=== PATIENT | female | born 1940 | race Caucasian/White ===

== ENCOUNTER 2021-03-30 02:21 | Emergency (ER) | payer MEDICARE ==
--- NOTE | 2021-03-30 02:44 | ERPHSYRPT ---
- History of Present Illness Source: patient, EMS Exam Limitations: no limitations Patient Subjective Stated Complaint: pt states "My nose has bleeding all day." Triage Nursing Assessment: pt came into the er via ambulance; pt axo x3; c/o epistasis; pt denies pain to nose; no active bleeding to ephraim nares; pt states that she is on blood thinners; pt states that bleeding was in rt nare; vitals wnl Physician History: Epistaxis which has resolved. Pt is on Eliquis Timing/Duration: intermittent Severity: mild ENT Location: nose Prearrival Treatment: no prearrival treatment Modifying Factors: Improves With: nothing Associated Symptoms: epistaxis, No ear pain (R), No ear pain (L), No cough, No fever, No chills, No change in hearing, No dizziness, No drooling, No ear drainage, No facial pain/swelling, No headache, No hearing loss, No jaw pain, No malaise, No motion sickness, No nasal congestion/drainage, No nasal foreign body, No neck pain, No poor fluid intake, No poor solids intake, No ringing of ears, No swollen glands, No sinus infection, No sore throat, No tooth pain, No difficulty swallowing, No voice change Allergies/Adverse Reactions: adhesive tape Allergy (Verified 03/30/21 02:26) atorvastatin [From Lipitor] Allergy (Verified 03/30/21 02:26) bacitracin Allergy (Verified 03/30/21 02:26) codeine Allergy (Verified 03/30/21 02:26) NSAIDS (Non-Steroidal Anti-Inflamma Allergy (Verified 03/30/21 02:26) Sulfa (Sulfonamide Antibiotics) Allergy (Verified 03/30/21 02:26) Hx Tetanus, Diphtheria Vaccination/Date Given: Yes Hx Influenza Vaccination/Date Given: Yes Hx Pneumococcal Vaccination/Date Given: Yes Travel Risk - International Travel Have you traveled outside of the country in past 3 weeks: No - Coronavirus Screening Are you exhibiting any of the following symptoms?: No Close contact with a COVID-19 positive Pt in past 14-21 Days: No - Vaccine Status Have you recieved a Covid-19 vaccination: Yes Machine Fitter: Moderna - Vaccination Dates Date of 2cond Vaccination (if applicable): unknown - Review of Systems Constitutional: No Symptoms Eyes: No Symptoms Ears, Nose, & Throat: No Symptoms, Epistaxis Respiratory: No Symptoms Cardiac: No Symptoms Abdominal/Gastrointestinal: No Symptoms Genitourinary Symptoms: No Symptoms Musculoskeletal: No Symptoms Skin: No Symptoms Neurological: No Symptoms Psychological: No Symptoms Endocrine: No Symptoms Hematologic/Lymphatic: No Symptoms Immunological/Allergic: No Symptoms - Past Medical History Neurological History: Peripheral Neuropathy Cardiac History: Arrhythmia Respiratory History: Asthma Musculoskeletal History: Arthritis, Degenerative Disk Disease, Osteoarthritis - Past Surgical History Past Surgical History: Yes Gastrointestinal: Hernia Repair Musculoskeletal: Orthopedic Surgery Other Surgical History: rt knee - Social History Smoking Status: Never smoker Exposure to second hand smoke: No Drug Use: none Patient Lives Alone: No Significant Family History: no pertinent family hx - Female History Hx Now: No - Nursing Vital Signs Nursing Vital Signs: Initial Vital Signs Temperature 97.9 F 03/30/21 02:26 Pulse Rate 90 03/30/21 02:26 Respiratory Rate 18 03/30/21 02:26 Blood Pressure 119/63 03/30/21 02:26 O2 Sat by Pulse Oximetry 96 03/30/21 02:26 Pain Scale Pain Intensity 0 - Physical Exam General Appearance: no apparent distress Eye Exam: bilateral eye: normal inspection, PERRL, EOMI Ear Exam: bilateral ear: auricle normal, canal normal, TM normal Nasal Exam: normal inspection, No active bleeding, No dried blood Throat Exam: normal, pharynx normal Neck Exam: normal inspection, non-tender, supple, full range of motion, trachea midline Cardiovascular/Respiratory Exam: normal breath sounds, regular rate/rhythm, heart sounds normal Abdominal Exam: non-tender, soft Neurologic Exam: alert, oriented x 3, cooperative, career technical education teacher II-XII nml as tested, normal mood/affect, sensation nml Skin Exam: normal color, warm, dry, No rash SpO2 Interpretation: normal SpO2: 96 O2 Delivery: Room Air - Course Nursing assessment & vital signs reviewed: Yes - Progress Progress Note: 03/30/21 02:41 No evidence of epistaxis in ER or obvious area of previous epistaxis. 03/30/21 03:27 Pt started to bleed from R nostril before discharge, after no bleeding during the majority of stay. Epistaxis catheter placed wo comps. Counseled pt/family regarding: need for follow-up - Departure Departure Disposition: Extended Care Facility Clinical Impression: Epistaxis Condition: Stable Critical Care Time: No Referrals: SERJIO CONRAD [Primary Care Provider] - Instructions: Nosebleeds (DC) Additional Instructions: Hold Eliquis for 48 hours. Have intermediate physician remove catheter on Thursday
[2021-03-30 03:36] VITALS: BP 112/59; PULSE 79
[2021-03-30 04:44] VITALS: O2SAT 96
== END 2021-03-30 03:37 ==
LOC: ED 02:21
DX: R04.0 Epistaxis (principal); Z79.01 Long term (current) use of anticoagulants; G62.9 Polyneuropathy, unspecified
CPT/HCPCS: 99283

== ENCOUNTER 2021-04-09 11:48 | Observation (INO) | payer MEDICARE ==
[2021-04-09] MEDS ORDERED: Sodium Chloride 0.9% 1000 ML 1,000 ML IV STA (12:02)
--- NOTE | 2021-04-09 12:06 | ERPHSYRPT ---
- History of Present Illness Time Seen by Provider: 04/09/21 12:00 Source: patient Patient Subjective Stated Complaint: Pt has had a nose bleed since around 0230 and it has not stopped, pt had a nose bleed last weekend and had to have a rhino rocket Triage Nursing Assessment: Pt brought to the ER by EMS, hypotensive, reports pain as 10/10 but she is talking up a storm about everything, pulses normal, pt states that the blood is dripping but none seen by this nurse, doesn't appear to be in any distress Physician History: Patient is a 80-year-old female presents to our ED for evaluation of epistaxis. Patient had a nosebleed last weekend. Patient is on Eliquis. Patient followed up in an ER. A Rhino Rocket was inserted. Patient's Eliquis was temporarily stopped. Rhino Rocket was removed. Patient resumed her Eliquis. Now her nosebleed has returned. Patient has baseline anemia. Patient requesting lab draw to make sure that she is not profoundly anemic. Patient states her nosebleed started at 2:30 AM and has been bleeding since. Patient arrived via EMS. No active bleeding at this time. Patient in good spirits. Patient is well-appearing nontoxic. Patient voices no other complaints or concerns at this time. Timing/Duration: today Severity: mild Associated Symptoms: denies symptoms Allergies/Adverse Reactions: adhesive tape Allergy (Verified 04/09/21 12:00) atorvastatin [From Lipitor] Allergy (Verified 04/09/21 12:00) bacitracin Allergy (Verified 04/09/21 12:00) codeine Allergy (Verified 04/09/21 12:00) NSAIDS (Non-Steroidal Anti-Inflamma Allergy (Verified 04/09/21 12:00) Sulfa (Sulfonamide Antibiotics) Allergy (Verified 04/09/21 12:00) Home Medications: Albuterol Sulfate [Albuterol Sulfate Hfa] 2 inh PO Q6H 04/09/21 [History] Allopurinol 300 mg [Zyloprim 300 mg] 600 mg PO DAILY 04/09/21 [History] Apixaban [Eliquis] 2.5 mg PO BID 04/09/21 [History] Ascorbic Acid [Vitamin C] 1,000 mg PO DAILY 04/09/21 [History] Aspirin EC 81 mg [Ecotrin 81 mg] 81 mg PO DAILY 04/09/21 [History] Budesonide 0.5 mg/2 ml [Pulmicort 0.5 mg/2 ml Respules] 1 vial PO UD 04/09/21 [History] Buspirone HCl [Buspar] 10 mg PO BID 04/09/21 [History] Cholecalciferol (Vitamin D3) [Vitamin D3] 125 mcg PO DAILY 04/09/21 [History] Cyanocobalamin (Vitamin B-12) [Vitamin B12] 2,500 mcg PO DAILY 04/09/21 [History] Dapagliflozin Propanediol [Farxiga] 10 mg PO QAM 04/09/21 [History] Docusate Sodium 100 mg [Colace 100 MG] 100 mg PO TID 04/09/21 [History] Duloxetine HCl [Cymbalta] 60 mg PO DAILY 04/09/21 [History] Ferrous Gluconate 324 mg PO TID 04/09/21 [History] Fluconazole 150 mg PO WEEKLY 04/09/21 [History] Fluticasone Propionate [Flovent 110 Mcg MDI] 1 spray IN BID 04/09/21 [History] Fosfomycin Tromethamine 3 gm PO WEEKLY 04/09/21 [History] Gabapentin [Neurontin] 600 mg PO BID 04/09/21 [History] Hydrocodone/Acetaminophen [Hydrocodone-Acetamin 5-325 mg] 1 tab PO Q4HPRN PRN MDD 6 04/09/21 [History] Icosapent Ethyl [Vascepa] 2 gm PO BID 04/09/21 [History] Insulin Glargine,Hum.rec.anlog [Basaglar Kwikpen U-100] 36 unit SQ QAM 04/09/21 [History] Insulin Lispro [Humalog] 10 unit SQ TIDAC 04/09/21 [History] Isosorbide Mononitrate [Isosorbide Mononitrate ER] 30 mg PO DAILY 04/09/21 [History] Levothyroxine Sodium 100 Mcg [Synthroid 100 Mcg] 100 mcg PO DAILY 04/09/21 [History] Lisinopril 5 mg [Zestril 5 MG] 5 mg PO DAILY 04/09/21 [History] Magnesium Oxide 400 mg [Mag-Ox 400] 400 mg PO TID 04/09/21 [History] Metoprolol Tartrate 25 mg [Lopressor 25MG Tab] 25 mg PO BID 04/09/21 [History] Montelukast Sodium 10 mg [Singulair 10 MG] 10 mg PO DAILY 04/09/21 [History] Omeprazole Magnesium 20 mg PO DAILY 04/09/21 [History] Potassium Chloride [Klor-Con] 20 meq PO BID 04/09/21 [History] Rosuvastatin Calcium 10 mg PO HS 04/09/21 [History] Semaglutide [Ozempic] 1 mg SQ WEEKLY 04/09/21 [History] Torsemide 100 mg PO BID 04/09/21 [History] Hx Tetanus, Diphtheria Vaccination/Date Given: Yes Hx Influenza Vaccination/Date Given: Yes Hx Pneumococcal Vaccination/Date Given: Yes Travel Risk - International Travel Have you traveled outside of the country in past 3 weeks: No - Coronavirus Screening Close contact with a COVID-19 positive Pt in past 14-21 Days: No - Vaccine Status Have you recieved a Covid-19 vaccination: Yes Paediatric Thoracic Physician: Moderna - Vaccination Dates Date of 2cond Vaccination (if applicable): unknown - Review of Systems Constitutional: No Symptoms, No Fever, No Chills Eyes: No Symptoms Ears, Nose, & Throat: No Symptoms Respiratory: No Symptoms, No Cough, No Dyspnea Cardiac: No Symptoms, No Chest Pain, No Edema, No Syncope Abdominal/Gastrointestinal: No Symptoms, No Abdominal Pain, No Nausea, No Vomiting, No Diarrhea Genitourinary Symptoms: No Symptoms, No Dysuria Musculoskeletal: No Symptoms, No Back Pain, No Neck Pain Skin: No Symptoms, No Rash Neurological: No Symptoms, No Dizziness, No Focal Weakness, No Sensory Changes Psychological: No Symptoms Endocrine: No Symptoms Hematologic/Lymphatic: No Symptoms Immunological/Allergic: No Symptoms All Other Systems: Reviewed and Negative - Past Medical History Pertinent Past Medical History: Yes Neurological History: Peripheral Neuropathy Cardiac History: Arrhythmia Respiratory History: Asthma Musculoskeletal History: Arthritis, Degenerative Disk Disease, Osteoarthritis - Past Surgical History Past Surgical History: Yes Gastrointestinal: Hernia Repair Musculoskeletal: Orthopedic Surgery Other Surgical History: rt knee - Social History Smoking Status: Never smoker Exposure to second hand smoke: No Drug Use: none Patient Lives Alone: No Significant Family History: no pertinent family hx - Female History Hx Now: No - Nursing Vital Signs Nursing Vital Signs: Initial Vital Signs Temperature 96.7 F 04/09/21 11:51 Pulse Rate 82 04/09/21 11:51 Blood Pressure 86/48 04/09/21 11:51 O2 Sat by Pulse Oximetry 92 L 04/09/21 11:51 Pain Scale Pain Intensity 6 - Physical Exam General Appearance: no apparent distress, alert Eye Exam: PERRL/EOMI, eyes nml inspection Ears, Nose, Throat Exam: normal ENT inspection, TMs normal, pharynx normal, moist mucous membranes, other (Epistaxis of the right nostril. There is active using a blood at time of exam.) Neck Exam: normal inspection, non-tender, supple, full range of motion Respiratory Exam: normal breath sounds, lungs clear, No respiratory distress Cardiovascular Exam: regular rate/rhythm, normal heart sounds, normal peripheral pulses Gastrointestinal/Abdomen Exam: soft, normal bowel sounds, No tenderness, No mass Back Exam: normal inspection, normal range of motion, No CVA tenderness, No vertebral tenderness Extremity Exam: normal inspection, normal range of motion, pelvis stable Neurologic Exam: alert, oriented x 3, cooperative, normal mood/affect, nml cerebellar function, nml station & gait, sensation nml, No motor deficits Skin Exam: normal color, warm, dry, No rash Lymphatic Exam: No adenopathy SpO2 Interpretation: normal SpO2: 92 O2 Delivery: Room Air - Course Nursing assessment & vital signs reviewed: Yes Ordered Tests: Active Orders 24 hr Category Date Time Status IV Insertion STAT Care 04/09/21 12:02 Active CBC W DIFF Stat Lab 04/09/21 12:09 Completed CMP Stat Lab 04/09/21 12:09 Completed CULTURE,URINE Stat Lab 04/09/21 Ordered Lactic Acid Stat Lab 04/09/21 13:48 Completed Manual Differential NC Stat Lab 04/09/21 12:09 Completed UA W/RFX UR CULTURE Stat Lab 04/09/21 13:12 Ordered Transfer Order Routine Transfer 04/09/21 Ordered Medication Summary Discontinued Medications Generic Name Dose Route Start Last Admin Trade Name Freq PRN Reason Stop Dose Admin Sodium Chloride 1,000 mls @ 999 mls/hr 04/09/21 12:02 04/09/21 13:20 Sodium Chloride 0.9% 1000 Ml IV 04/09/21 13:02 Infused .Q1H1M STA Infusion Sodium Chloride Confirm 04/09/21 12:15 Sodium Chloride 0.9% 1000 Ml Administered 04/09/21 12:16 Dose 1,000 mls @ ud .ROUTE .STK-MED ONE Tramadol HCl 50 mg 04/09/21 14:37 04/09/21 14:41 Ultram 50 Mg PO 04/09/21 14:38 50 mg STAT ONE Administration Tramadol HCl Confirm 04/09/21 14:41 Ultram 50 Mg Administered 04/09/21 14:42 Dose 50 mg .ROUTE .STK-MED ONE Lab/Rad Data: Laboratory Result Diagrams 04/09/21 12:09 04/09/21 12:09 Laboratory Results 04/09/21 04/09/21 04/09/21 Range/Units 14:24 13:48 12:09 WBC (4.0-10.5) K/mm3 RBC (4.1-5.4) M/mm3 Hgb (12.0-16.0) gm/dl Hct (35-47) % MCV (78-100) fl MCH (26-32) pg MCHC (32-36) g/dl RDW (11.5-14.0) % Plt Count (150-450) K/mm3 MPV (7.5-11.0) fl Sodium 127 L (137-145) mmol/L Potassium 5.2 H (3.5-5.1) mmol/L Chloride 81 L (98-107) mmol/L Carbon Dioxide 31 H (22-30) mmol/L Anion Gap 20.4 H (5-15) MEQ/L BUN 123 H (7-17) mg/dL Creatinine 2.44 H (0.52-1.04) mg/dL Estimated GFR 20.2 ML/MIN Glucose 247 H (74-106) mg/dL Lactic Acid 2.1 H (0.4-2.0) Calcium 9.7 (8.4-10.2) mg/dL Total Bilirubin 0.20 (0.2-1.3) mg/dL AST 27 (14-36) U/L ALT 29 (0-35) U/L Alkaline Phosphatase 93 (38-126) U/L Serum Total Protein 7.4 (6.3-8.2) g/dL Albumin 4.2 (3.5-5.0) g/dL SARS-CoV-2 (PCR) NEGATIVE (NEGATIVE) 04/09/21 Range/Units 12:09 WBC 15.1 H (4.0-10.5) K/mm3 RBC 3.57 L (4.1-5.4) M/mm3 Hgb 9.6 L (12.0-16.0) gm/dl Hct 32.1 L (35-47) % MCV 89.9 (78-100) fl MCH 26.9 (26-32) pg MCHC 29.9 L (32-36) g/dl RDW 19.2 H (11.5-14.0) % Plt Count 388 (150-450) K/mm3 MPV 8.0 (7.5-11.0) fl Sodium (137-145) mmol/L Potassium (3.5-5.1) mmol/L Chloride (98-107) mmol/L Carbon Dioxide (22-30) mmol/L Anion Gap (5-15) MEQ/L BUN (7-17) mg/dL Creatinine (0.52-1.04) mg/dL Estimated GFR ML/MIN Glucose (74-106) mg/dL Lactic Acid (0.4-2.0) Calcium (8.4-10.2) mg/dL Total Bilirubin (0.2-1.3) mg/dL AST (14-36) U/L ALT (0-35) U/L Alkaline Phosphatase (38-126) U/L Serum Total Protein (6.3-8.2) g/dL Albumin (3.5-5.0) g/dL SARS-CoV-2 (PCR) (NEGATIVE) - Progress Progress: improved Progress Note: Patient reassessed. She feels well. Rhino Rocket inserted. Rhino Rocket size is 5.5 cm. Patient tolerated procedure well. Vital stable. Patient has acute renal injury. IV fluids initiated. Patient will need a repeat chemistry to reassess potassium after IV fluid administration. Patient will also require antibiotics as she has a Rhino Rocket which predisposes to toxic shock syndrome. Plan of care discussed with patient. She agrees to admission [facility] for further evaluation and treatment. 04/09/21 15:43 Discussed with : Waylon Will see patient in: hospital (observation) Counseled pt/family regarding: lab results, diagnosis - Departure Departure Disposition: Home Clinical Impression: Epistaxis, Leukocytosis, Normocytic anemia, Hyponatremia, High anion gap metabolic acidosis, Acute renal injury, Hyperglycemia Condition: Stable Critical Care Time: No Referrals: SERJIO CONRAD [Primary Care Provider] -
[2021-04-09] MEDS ORDERED: Sodium Chloride 0.9% 1000 ML 1,000 ML ONE (12:15)
[2021-04-09 12:19] LABS: Hematocrit 32.1 % (35-47); Hemoglobin 9.6 gm/dl (12.0-16.0); Mean Cell Volume 89.9 fl (78-100); Mean Corpuscular Hemoglobin 26.9 pg (26-32); Mean Corpuscular Hgb Concent. 29.9 g/dl (32-36); Platelet Count 388 K/mm3 (150-450); Red Blood Count 3.57 M/mm3 (4.1-5.4); Red Cell Distribution Width 19.2 % (11.5-14.0); White Blood Count 15.1 K/mm3 (4.0-10.5)
[2021-04-09 12:33] LABS: ALBUMIN 4.2 g/dL (3.5-5.0); ANION GAP 20.4 MEQ/L (5-15); BILIRUBIN,TOTAL 0.2 mg/dL (0.2-1.3); Calcium 9.7 mg/dL (8.4-10.2); Creatinine 1 2.44 mg/dL (0.52-1.04); EST GLOMERULAR FILTRATION RATE 20.2 ML/MIN; Potassium 5.2 mmol/L (3.5-5.1); Total Protein 7.4 g/dL (6.3-8.2)
[2021-04-09] MEDS ORDERED: ULTRAM 50 MG PO ONE (14:37)
[2021-04-09] MEDS ORDERED: ULTRAM 50 MG ONE (14:41)
[2021-04-09 15:55] LABS: BAND 4 % (0.0-2.0); Eosinophil 1 % (0.00-3.0); Lymphocytes 8 % (24-44); Monocyte 6 % (0.0-12.0); Neutrophils 81 % (36.0-66.0); Total Cells Counted 100
[2021-04-09 15:56] LABS: Hypochromia 1+; Platelet Estimate NORMAL (NORMAL)
[2021-04-09 16:09] LABS: Appearance CLEAR (CLEAR); Bacteria RARE /HPF (NEGATIVE); Bilirubin NEGATIVE (NEGATIVE); Blood SMALL Ery/ul (0-5); Glucose 50 mg/dL (NEGATIVE); Hyaline Casts 0-2 /LPF (0-2); Ketones NEGATIVE (NEGATIVE); Leukocyte Esterase LARGE (NEGATIVE); Mucus SLIGHT /HPF (NEGATIVE); Nitrite NEGATIVE (NEGATIVE); Protein,Urine Dip NEGATIVE (Negative); Specific Gravity 1.009 (1.005-1.025); Urobilinogen NEGATIVE mg/dL (0-1); WBC 26-50 /HPF (0-5)
[2021-04-09 16:12] LABS: Budding Yeast Rare /HPF (NEGATIVE)
[2021-04-09] MEDS ORDERED: VENTOLIN COMMON CANISTER IH PRN (16:40)
[2021-04-09] MEDS ORDERED: Ventolin Hfa MDI IH SCH (16:45)
[2021-04-09] MEDS ORDERED: PULMICORT 0.5 MG/2 ML RESPULES IH SCH (16:45)
[2021-04-09] MEDS ORDERED: MEDICATION INTERVENTION MC SCH ×2 (17:00→17:15)
[2021-04-09] MEDS: Sodium Chloride 0.9% 1000 ML 1,000 ML IV SCH (17:22)
[2021-04-09] MEDS: NORCO 5/325 MG PO PRN ×2 (17:32→23:39)
[2021-04-09] MEDS: PULMICORT 0.5 MG/2 ML RESPULES IH SCH (19:22)
[2021-04-09] MEDS: KEFLEX 500 MG PO SCH (21:32)
[2021-04-09] MEDS: FEOSOL 325 MG PO SCH (21:32)
[2021-04-09] MEDS: Colace 100 MG PO SCH (21:32)
[2021-04-09] MEDS: Lopressor 25MG Tab PO SCH (21:32)
[2021-04-09] MEDS: MAG-OX 400 PO SCH (21:33)
[2021-04-09] MEDS: ULTRAM 50 MG PO PRN (21:34)
[2021-04-09] MEDS ORDERED: NON-FORMULARY ITEM (Rosuvastatin Calcium [Rosuvastatin Calcium] 10 MG) PO SCH (22:00)
[2021-04-09] MEDS ORDERED: ZOCOR 20MG PO SCH (22:00)
[2021-04-09] MEDS ORDERED: Flovent 110 Mcg MDI IH SCH (22:00)
[2021-04-09] MEDS ORDERED: NON-FORMULARY ITEM (Ferrous Gluconate [Ferrous Gluconate] 324 MG) PO SCH (22:00)
[2021-04-09] MEDS ORDERED: ICOSAPENT ETHYL 2 GM PO SCH (22:00)
[2021-04-10] MEDS: Sodium Chloride 0.9% 1000 ML 1,000 ML IV SCH (01:41)
[2021-04-10] MEDS: ULTRAM 50 MG PO PRN (03:59)
[2021-04-10 05:30] LABS: Hematocrit 28.8 % (35-47); Hemoglobin 8.5 gm/dl (12.0-16.0); Mean Cell Volume 90.9 fl (78-100); Mean Corpuscular Hemoglobin 26.8 pg (26-32); Mean Corpuscular Hgb Concent. 29.5 g/dl (32-36); Mean Platelet Volume 8.4 fl (7.5-11.0); Platelet Count 361 K/mm3 (150-450); Red Blood Count 3.17 M/mm3 (4.1-5.4); Red Cell Distribution Width 19.1 % (11.5-14.0); White Blood Count 17.1 K/mm3 (4.0-10.5)
[2021-04-10 06:04] LABS: ALBUMIN 3.6 g/dL (3.5-5.0); ALKALINE PHOSPHATASE 79 U/L (38-126); ANION GAP 18.7 MEQ/L (5-15); BILIRUBIN,TOTAL < 0.10 mg/dL (0.2-1.3); BLOOD UREA NITROGEN 110 mg/dL (7-17); CHLORIDE 89 mmol/L (98-107); Carbon Dioxide 28 mmol/L (22-30); Creatinine 1 1.97 mg/dL (0.52-1.04); EST GLOMERULAR FILTRATION RATE 25.8 ML/MIN; Glucose 195 mg/dL (74-106); Potassium 5.6 mmol/L (3.5-5.1); SGOT/AST 23 U/L (14-36); SGPT/ALT 23 U/L (0-35); SODIUM 131 mmol/L (137-145); Total Protein 6.5 g/dL (6.3-8.2)
[2021-04-10] MEDS: PULMICORT 0.5 MG/2 ML RESPULES IH SCH (07:02)
[2021-04-10 07:07] VITALS: O2SAT 97
[2021-04-10] MEDS ORDERED: HUMALOG SQ SCH (07:30)
[2021-04-10] MEDS ORDERED: NON-FORMULARY ITEM (Insulin Lispro 10 UNIT) SQ SCH (07:30)
[2021-04-10] MEDS: Colace 100 MG PO SCH (07:51)
[2021-04-10] MEDS: FEOSOL 325 MG PO SCH (07:52)
[2021-04-10] MEDS: MAG-OX 400 PO SCH (07:53)
[2021-04-10] MEDS: Lopressor 25MG Tab PO SCH (07:53)
[2021-04-10] MEDS: KEFLEX 500 MG PO SCH (07:53)
--- NOTE | 2021-04-10 08:01 | PCM.SSS ---
History of Present Illness - Chief Complaint Chief Complaint: epistaxis History of Present Illness: is a 80 year old female who presented to the ER with epistaxis of several hours duration, she had a significant nosebleed episode with rhinorocket and ENT consult by Dr Hope, it was removed and out for about a week then recurred, her eliquis had been restarted. she has no complaints today, no bleeding overnight since rhino rocket was inserted, she feels well and wishes to return to her room. - Review of Systems Constitutional: No Fever, No Chills Ears, Nose, & Throat: Epistaxis (resolved s/p packing) Respiratory: No Cough, No Short Of Breath Cardiac: No Chest Pain, No Edema, No Syncope Abdominal/Gastrointestinal: No Symptoms Skin: No Rash All Other Systems: Reviewed and Negative Medications & Allergies Home Medications: Home Medication List Albuterol Sulfate [Albuterol Sulfate Hfa] 2 inh PO Q6H 04/09/21 [History Confirmed 04/09/21] Allopurinol 300 mg [Zyloprim 300 mg] 600 mg PO DAILY 04/09/21 [History Confirmed 04/09/21] Ascorbic Acid [Vitamin C] 1,000 mg PO DAILY 04/09/21 [History Confirmed 04/09/21] Budesonide 0.5 mg/2 ml [Pulmicort 0.5 mg/2 ml Respules] 1 vial PO UD 04/09/21 [History Confirmed 04/09/21] Buspirone HCl [Buspar] 10 mg PO BID 04/09/21 [History Confirmed 04/09/21] Cholecalciferol (Vitamin D3) [Vitamin D3] 125 mcg PO DAILY 04/09/21 [History Confirmed 04/09/21] Cyanocobalamin (Vitamin B-12) [Vitamin B12] 2,500 mcg PO DAILY 04/09/21 [History Confirmed 04/09/21] Dapagliflozin Propanediol [Farxiga] 10 mg PO QAM 04/09/21 [History Confirmed 04/09/21] Docusate Sodium 100 mg [Colace 100 MG] 100 mg PO TID 04/09/21 [History Confirmed 04/09/21] Duloxetine HCl [Cymbalta] 60 mg PO DAILY 04/09/21 [History Confirmed 04/09/21] Ferrous Gluconate 324 mg PO TID 04/09/21 [History Confirmed 04/09/21] Fluconazole 150 mg PO WEEKLY 04/09/21 [History Confirmed 04/09/21] Fluticasone Propionate [Flovent 110 Mcg MDI] 1 spray IN BID 04/09/21 [History Confirmed 04/09/21] Fosfomycin Tromethamine 3 gm PO WEEKLY 04/09/21 [History Confirmed 04/09/21] Gabapentin [Neurontin] 600 mg PO BID 04/09/21 [History Confirmed 04/09/21] Hydrocodone/Acetaminophen [Hydrocodone-Acetamin 5-325 mg] 1 tab PO Q4HPRN PRN MDD 6 04/09/21 [History Confirmed 04/09/21] Icosapent Ethyl [Vascepa] 2 gm PO BID 04/09/21 [History Confirmed 04/09/21] Insulin Glargine,Hum.rec.anlog [Neliagldevon Qureshi U-100] 36 unit SQ QAM 04/09/21 [History Confirmed 04/09/21] Insulin Lispro [Humalog] 10 unit SQ TIDAC 04/09/21 [History Confirmed 04/09/21] Isosorbide Mononitrate [Isosorbide Mononitrate ER] 30 mg PO DAILY 04/09/21 [History Confirmed 04/09/21] Levothyroxine Sodium 100 Mcg [Synthroid 100 Mcg] 100 mcg PO DAILY 04/09/21 [History Confirmed 04/09/21] Lisinopril 5 mg [Zestril 5 MG] 5 mg PO DAILY 04/09/21 [History Confirmed 04/09/21] Magnesium Oxide 400 mg [Mag-Ox 400] 400 mg PO TID 04/09/21 [History Confirmed 04/09/21] Metoprolol Tartrate 25 mg [Lopressor 25MG Tab] 25 mg PO BID 04/09/21 [History Confirmed 04/09/21] Montelukast Sodium 10 mg [Singulair 10 MG] 10 mg PO DAILY 04/09/21 [History Confirmed 04/09/21] Omeprazole Magnesium 20 mg PO DAILY 04/09/21 [History Confirmed 04/09/21] Potassium Chloride [Klor-Con] 20 meq PO BID 04/09/21 [History Confirmed 04/09/21] Rosuvastatin Calcium 10 mg PO HS 04/09/21 [History Confirmed 04/09/21] Semaglutide [Ozempic] 1 mg SQ WEEKLY 04/09/21 [History Confirmed 04/09/21] Torsemide 100 mg PO BID 04/09/21 [History Confirmed 04/09/21] Cephalexin Mh 500 mg [Keflex 500 mg] 500 mg PO TID capsule 04/10/21 [Rx] Allergies/Adverse Reactions: Allergies Allergy/AdvReac Type Severity Reaction Status Date / Time adhesive tape Allergy Verified 04/09/21 12:00 atorvastatin [From Lipitor] Allergy Verified 04/09/21 12:00 bacitracin Allergy Verified 04/09/21 12:00 codeine Allergy Verified 04/09/21 12:00 NSAIDS (Non-Steroidal Allergy Verified 04/09/21 12:00 Anti-Inflamma Sulfa (Sulfonamide Allergy Verified 04/09/21 12:00 Antibiotics) - Past Medical History Past Medical History: Yes Neurological History: Peripheral Neuropathy Cardiac History: Arrhythmia Respiratory History: Asthma Musculoskelatal History: Arthritis, Degenerative Disk Disease, Osteoarthritis - Female History Are you now?: No - Past Surgical History Past Surgical History: Yes GI Surgical History: Hernia Repair Musculskeletal Surgical Hx: Orthopedic Surgery Other Surgical History: rt knee - Social History Smoking Status: Never smoker Exposure to second hand smoke: No Alcohol: None Drug Use: none Significant Family History: no pertinent family hx - Physical Exam Vital Signs: Vital Signs - 24 hr Temp Pulse Resp BP Pulse Ox 04/10/21 07:05 87 18 97 04/10/21 04:00 97.6 F 87 18 147/65 96 04/10/21 00:00 98 F 86 19 112/55 100 04/09/21 19:34 97.9 F 87 18 110/56 95 04/09/21 19:22 92 H 20 95 04/09/21 16:30 98 04/09/21 16:09 97.0 F 82 20 106/67 94 L 04/09/21 16:08 97.0 F 82 20 106/67 99 04/09/21 15:49 92 L 04/09/21 15:00 84 18 95 04/09/21 13:15 63 115/53 92 L 04/09/21 11:51 96.7 F 82 86/48 92 L General Appearance: no apparent distress, alert Neurologic Exam: alert, oriented x 3 Ears, Nose, Throat Exam: other (rhinorocket in right nares, no bleeding in posterior oropharynx, no trauma) Respiratory Exam: normal breath sounds, lungs clear, No respiratory distress Cardiovascular Exam: regular rate/rhythm, normal heart sounds, normal peripheral pulses Gastrointestinal/Abdomen Exam: soft, normal bowel sounds, No tenderness, No mass Extremity Exam: normal inspection, normal range of motion, pelvis stable Skin Exam: normal color, warm, dry, No rash Results - Labs Lab/Micro Results: Lab Results-Last 24 Hours 04/09/21 04/09/21 04/09/21 Range/Units 12:09 12:09 13:12 WBC 15.1 H (4.0-10.5) K/mm3 RBC 3.57 L (4.1-5.4) M/mm3 Hgb 9.6 L (12.0-16.0) gm/dl Hct 32.1 L (35-47) % MCV 89.9 (78-100) fl MCH 26.9 (26-32) pg MCHC 29.9 L (32-36) g/dl RDW 19.2 H (11.5-14.0) % Plt Count 388 (150-450) K/mm3 MPV 8.0 (7.5-11.0) fl Segmented Neutrophils 81 H (36.0-66.0) % Band Neutrophils 4 H (0.0-2.0) % Lymphocytes (Manual) 8 L (24-44) % Monocytes (Manual) 6 (0.0-12.0) % Eosinophils (Manual) 1 (0.00-3.0) % Hypochromia 1+ Platelet Estimate NORMAL (NORMAL) RBC Morphology ABNORMAL Sodium 127 L (137-145) mmol/L Potassium 5.2 H (3.5-5.1) mmol/L Chloride 81 L (98-107) mmol/L Carbon Dioxide 31 H (22-30) mmol/L Anion Gap 20.4 H (5-15) MEQ/L BUN 123 H (7-17) mg/dL Creatinine 2.44 H (0.52-1.04) mg/dL Estimated GFR 20.2 ML/MIN Glucose 247 H (74-106) mg/dL Lactic Acid (0.4-2.0) Calcium 9.7 (8.4-10.2) mg/dL Total Bilirubin 0.20 (0.2-1.3) mg/dL AST 27 (14-36) U/L ALT 29 (0-35) U/L Alkaline Phosphatase 93 (38-126) U/L Serum Total Protein 7.4 (6.3-8.2) g/dL Albumin 4.2 (3.5-5.0) g/dL Urine Color STRAW (YELLOW) Urine Appearance CLEAR (CLEAR) Urine pH 7.0 (5-6) Ur Specific Thornton 1.009 (1.005-1.025) Urine Protein NEGATIVE (Negative) Urine Ketones NEGATIVE (NEGATIVE) Urine Blood SMALL (0-5) Rj/ul Urine Nitrite NEGATIVE (NEGATIVE) Urine Bilirubin NEGATIVE (NEGATIVE) Urine Urobilinogen NEGATIVE (0-1) mg/dL Ur Leukocyte Esterase LARGE (NEGATIVE) Urine WBC (Auto) 26-50 (0-5) /HPF Urine RBC (Auto) 6-10 (0-2) /HPF U Hyaline Cast (Auto) 0-2 (0-2) /LPF U Epithel Cells (Auto) NONE (FEW) /HPF Urine Bacteria (Auto) RARE (NEGATIVE) /HPF Urine Mucus (Auto) SLIGHT (NEGATIVE) /HPF Urine Yeast (Budding) Rare (NEGATIVE) /HPF Urine Culture Reflexed YES (NO) Urine Glucose 50 (NEGATIVE) mg/dL SARS-CoV-2 (PCR) (NEGATIVE) 04/09/21 04/09/21 04/10/21 Range/Units 13:48 14:24 04:50 WBC 17.1 H (4.0-10.5) K/mm3 RBC 3.17 L (4.1-5.4) M/mm3 Hgb 8.5 L (12.0-16.0) gm/dl Hct 28.8 L (35-47) % MCV 90.9 (78-100) fl MCH 26.8 (26-32) pg MCHC 29.5 L (32-36) g/dl RDW 19.1 H (11.5-14.0) % Plt Count 361 (150-450) K/mm3 MPV 8.4 (7.5-11.0) fl Segmented Neutrophils (36.0-66.0) % Band Neutrophils (0.0-2.0) % Lymphocytes (Manual) (24-44) % Monocytes (Manual) (0.0-12.0) % Eosinophils (Manual) (0.00-3.0) % Hypochromia Platelet Estimate (NORMAL) RBC Morphology Sodium (137-145) mmol/L Potassium (3.5-5.1) mmol/L Chloride (98-107) mmol/L Carbon Dioxide (22-30) mmol/L Anion Gap (5-15) MEQ/L BUN (7-17) mg/dL Creatinine (0.52-1.04) mg/dL Estimated GFR ML/MIN Glucose (74-106) mg/dL Lactic Acid 2.1 H (0.4-2.0) Calcium (8.4-10.2) mg/dL Total Bilirubin (0.2-1.3) mg/dL AST (14-36) U/L ALT (0-35) U/L Alkaline Phosphatase (38-126) U/L Serum Total Protein (6.3-8.2) g/dL Albumin (3.5-5.0) g/dL Urine Color (YELLOW) Urine Appearance (CLEAR) Urine pH (5-6) Ur Specific Thornton (1.005-1.025) Urine Protein (Negative) Urine Ketones (NEGATIVE) Urine Blood (0-5) Rj/ul Urine Nitrite (NEGATIVE) Urine Bilirubin (NEGATIVE) Urine Urobilinogen (0-1) mg/dL Ur Leukocyte Esterase (NEGATIVE) Urine WBC (Auto) (0-5) /HPF Urine RBC (Auto) (0-2) /HPF U Hyaline Cast (Auto) (0-2) /LPF U Epithel Cells (Auto) (FEW) /HPF Urine Bacteria (Auto) (NEGATIVE) /HPF Urine Mucus (Auto) (NEGATIVE) /HPF Urine Yeast (Budding) (NEGATIVE) /HPF Urine Culture Reflexed (NO) Urine Glucose (NEGATIVE) mg/dL SARS-CoV-2 (PCR) NEGATIVE (NEGATIVE) 04/10/21 04/10/21 Range/Units 04:50 05:13 WBC (4.0-10.5) K/mm3 RBC (4.1-5.4) M/mm3 Hgb (12.0-16.0) gm/dl Hct (35-47) % MCV (78-100) fl MCH (26-32) pg MCHC (32-36) g/dl RDW (11.5-14.0) % Plt Count (150-450) K/mm3 MPV (7.5-11.0) fl Segmented Neutrophils (36.0-66.0) % Band Neutrophils (0.0-2.0) % Lymphocytes (Manual) (24-44) % Monocytes (Manual) (0.0-12.0) % Eosinophils (Manual) (0.00-3.0) % Hypochromia Platelet Estimate (NORMAL) RBC Morphology Sodium 131 L (137-145) mmol/L Potassium 5.6 H (3.5-5.1) mmol/L Chloride 89 L (98-107) mmol/L Carbon Dioxide 28 (22-30) mmol/L Anion Gap 18.7 H (5-15) MEQ/L BUN 110 H (7-17) mg/dL Creatinine 1.97 H (0.52-1.04) mg/dL Estimated GFR 25.8 ML/MIN Glucose 195 H (74-106) mg/dL Lactic Acid 1.5 (0.4-2.0) Calcium 9.0 (8.4-10.2) mg/dL Total Bilirubin < 0.10 L (0.2-1.3) mg/dL AST 23 (14-36) U/L ALT 23 (0-35) U/L Alkaline Phosphatase 79 (38-126) U/L Serum Total Protein 6.5 (6.3-8.2) g/dL Albumin 3.6 (3.5-5.0) g/dL Urine Color (YELLOW) Urine Appearance (CLEAR) Urine pH (5-6) Ur Specific Thornton (1.005-1.025) Urine Protein (Negative) Urine Ketones (NEGATIVE) Urine Blood (0-5) Rj/ul Urine Nitrite (NEGATIVE) Urine Bilirubin (NEGATIVE) Urine Urobilinogen (0-1) mg/dL Ur Leukocyte Esterase (NEGATIVE) Urine WBC (Auto) (0-5) /HPF Urine RBC (Auto) (0-2) /HPF U Hyaline Cast (Auto) (0-2) /LPF U Epithel Cells (Auto) (FEW) /HPF Urine Bacteria (Auto) (NEGATIVE) /HPF Urine Mucus (Auto) (NEGATIVE) /HPF Urine Yeast (Budding) (NEGATIVE) /HPF Urine Culture Reflexed (NO) Urine Glucose (NEGATIVE) mg/dL SARS-CoV-2 (PCR) (NEGATIVE) - Other Procedures and Tests Respiratory Therapy 04/09/21 16:10 Oxygen Nasal Cannula 3 lpm Respiratory Therapy Assessment DAILY Assessment/Plan (1) Epistaxis Current Visit: Yes Status: Acute Assessment & Plan: rhino rocket inserted, will f/u with Dr Hope for removal and continue keflex for the next 7 days. Code(s): R04.0 - EPISTAXIS (2) Acute renal injury Current Visit: Yes Status: Acute Assessment & Plan: improved with hydration, stable Code(s): N17.9 - ACUTE KIDNEY FAILURE, UNSPECIFIED Hospital Summary - Vitals & Intake/Output Vital Signs: Vital Signs Temperature 97.6 F 04/10/21 04:00 Pulse Rate 87 04/10/21 07:05 Respiratory Rate 18 04/10/21 07:05 Blood Pressure 147/65 04/10/21 04:00 O2 Sat by Pulse Oximetry 97 04/10/21 07:05 Intake & Output: Intake & Output 04/07/21 04/08/21 04/09/21 04/10/21 11:59 11:59 11:59 11:59 Intake Total 1720 Output Total 2500 Balance -780 Weight 75.75 kg 75.75 kg - Lab Result Diagrams: 04/10/21 04:50 04/10/21 04:50 Lab Results-Last 24 Hrs: Lab Results-Last 24 Hours 04/09/21 04/09/21 04/09/21 Range/Units 12:09 12:09 13:12 WBC 15.1 H (4.0-10.5) K/mm3 RBC 3.57 L (4.1-5.4) M/mm3 Hgb 9.6 L (12.0-16.0) gm/dl Hct 32.1 L (35-47) % MCV 89.9 (78-100) fl MCH 26.9 (26-32) pg MCHC 29.9 L (32-36) g/dl RDW 19.2 H (11.5-14.0) % Plt Count 388 (150-450) K/mm3 MPV 8.0 (7.5-11.0) fl Segmented Neutrophils 81 H (36.0-66.0) % Band Neutrophils 4 H (0.0-2.0) % Lymphocytes (Manual) 8 L (24-44) % Monocytes (Manual) 6 (0.0-12.0) % Eosinophils (Manual) 1 (0.00-3.0) % Hypochromia 1+ Platelet Estimate NORMAL (NORMAL) RBC Morphology ABNORMAL Sodium 127 L (137-145) mmol/L Potassium 5.2 H (3.5-5.1) mmol/L Chloride 81 L (98-107) mmol/L Carbon Dioxide 31 H (22-30) mmol/L Anion Gap 20.4 H (5-15) MEQ/L BUN 123 H (7-17) mg/dL Creatinine 2.44 H (0.52-1.04) mg/dL Estimated GFR 20.2 ML/MIN Glucose 247 H (74-106) mg/dL Lactic Acid (0.4-2.0) Calcium 9.7 (8.4-10.2) mg/dL Total Bilirubin 0.20 (0.2-1.3) mg/dL AST 27 (14-36) U/L ALT 29 (0-35) U/L Alkaline Phosphatase 93 (38-126) U/L Serum Total Protein 7.4 (6.3-8.2) g/dL Albumin 4.2 (3.5-5.0) g/dL Urine Color STRAW (YELLOW) Urine Appearance CLEAR (CLEAR) Urine pH 7.0 (5-6) Ur Specific Thornton 1.009 (1.005-1.025) Urine Protein NEGATIVE (Negative) Urine Ketones NEGATIVE (NEGATIVE) Urine Blood SMALL (0-5) Rj/ul Urine Nitrite NEGATIVE (NEGATIVE) Urine Bilirubin NEGATIVE (NEGATIVE) Urine Urobilinogen NEGATIVE (0-1) mg/dL Ur Leukocyte Esterase LARGE (NEGATIVE) Urine WBC (Auto) 26-50 (0-5) /HPF Urine RBC (Auto) 6-10 (0-2) /HPF U Hyaline Cast (Auto) 0-2 (0-2) /LPF U Epithel Cells (Auto) NONE (FEW) /HPF Urine Bacteria (Auto) RARE (NEGATIVE) /HPF Urine Mucus (Auto) SLIGHT (NEGATIVE) /HPF Urine Yeast (Budding) Rare (NEGATIVE) /HPF Urine Culture Reflexed YES (NO) Urine Glucose 50 (NEGATIVE) mg/dL SARS-CoV-2 (PCR) (NEGATIVE) 04/09/21 04/09/21 04/10/21 Range/Units 13:48 14:24 04:50 WBC 17.1 H (4.0-10.5) K/mm3 RBC 3.17 L (4.1-5.4) M/mm3 Hgb 8.5 L (12.0-16.0) gm/dl Hct 28.8 L (35-47) % MCV 90.9 (78-100) fl MCH 26.8 (26-32) pg MCHC 29.5 L (32-36) g/dl RDW 19.1 H (11.5-14.0) % Plt Count 361 (150-450) K/mm3 MPV 8.4 (7.5-11.0) fl Segmented Neutrophils (36.0-66.0) % Band Neutrophils (0.0-2.0) % Lymphocytes (Manual) (24-44) % Monocytes (Manual) (0.0-12.0) % Eosinophils (Manual) (0.00-3.0) % Hypochromia Platelet Estimate (NORMAL) RBC Morphology Sodium (137-145) mmol/L Potassium (3.5-5.1) mmol/L Chloride (98-107) mmol/L Carbon Dioxide (22-30) mmol/L Anion Gap (5-15) MEQ/L BUN (7-17) mg/dL Creatinine (0.52-1.04) mg/dL Estimated GFR ML/MIN Glucose (74-106) mg/dL Lactic Acid 2.1 H (0.4-2.0) Calcium (8.4-10.2) mg/dL Total Bilirubin (0.2-1.3) mg/dL AST (14-36) U/L ALT (0-35) U/L Alkaline Phosphatase (38-126) U/L Serum Total Protein (6.3-8.2) g/dL Albumin (3.5-5.0) g/dL Urine Color (YELLOW) Urine Appearance (CLEAR) Urine pH (5-6) Ur Specific Thornton (1.005-1.025) Urine Protein (Negative) Urine Ketones (NEGATIVE) Urine Blood (0-5) Rj/ul Urine Nitrite (NEGATIVE) Urine Bilirubin (NEGATIVE) Urine Urobilinogen (0-1) mg/dL Ur Leukocyte Esterase (NEGATIVE) Urine WBC (Auto) (0-5) /HPF Urine RBC (Auto) (0-2) /HPF U Hyaline Cast (Auto) (0-2) /LPF U Epithel Cells (Auto) (FEW) /HPF Urine Bacteria (Auto) (NEGATIVE) /HPF Urine Mucus (Auto) (NEGATIVE) /HPF Urine Yeast (Budding) (NEGATIVE) /HPF Urine Culture Reflexed (NO) Urine Glucose (NEGATIVE) mg/dL SARS-CoV-2 (PCR) NEGATIVE (NEGATIVE) 04/10/21 04/10/21 Range/Units 04:50 05:13 WBC (4.0-10.5) K/mm3 RBC (4.1-5.4) M/mm3 Hgb (12.0-16.0) gm/dl Hct (35-47) % MCV (78-100) fl MCH (26-32) pg MCHC (32-36) g/dl RDW (11.5-14.0) % Plt Count (150-450) K/mm3 MPV (7.5-11.0) fl Segmented Neutrophils (36.0-66.0) % Band Neutrophils (0.0-2.0) % Lymphocytes (Manual) (24-44) % Monocytes (Manual) (0.0-12.0) % Eosinophils (Manual) (0.00-3.0) % Hypochromia Platelet Estimate (NORMAL) RBC Morphology Sodium 131 L (137-145) mmol/L Potassium 5.6 H (3.5-5.1) mmol/L Chloride 89 L (98-107) mmol/L Carbon Dioxide 28 (22-30) mmol/L Anion Gap 18.7 H (5-15) MEQ/L BUN 110 H (7-17) mg/dL Creatinine 1.97 H (0.52-1.04) mg/dL Estimated GFR 25.8 ML/MIN Glucose 195 H (74-106) mg/dL Lactic Acid 1.5 (0.4-2.0) Calcium 9.0 (8.4-10.2) mg/dL Total Bilirubin < 0.10 L (0.2-1.3) mg/dL AST 23 (14-36) U/L ALT 23 (0-35) U/L Alkaline Phosphatase 79 (38-126) U/L Serum Total Protein 6.5 (6.3-8.2) g/dL Albumin 3.6 (3.5-5.0) g/dL Urine Color (YELLOW) Urine Appearance (CLEAR) Urine pH (5-6) Ur Specific Thornton (1.005-1.025) Urine Protein (Negative) Urine Ketones (NEGATIVE) Urine Blood (0-5) Rj/ul Urine Nitrite (NEGATIVE) Urine Bilirubin (NEGATIVE) Urine Urobilinogen (0-1) mg/dL Ur Leukocyte Esterase (NEGATIVE) Urine WBC (Auto) (0-5) /HPF Urine RBC (Auto) (0-2) /HPF U Hyaline Cast (Auto) (0-2) /LPF U Epithel Cells (Auto) (FEW) /HPF Urine Bacteria (Auto) (NEGATIVE) /HPF Urine Mucus (Auto) (NEGATIVE) /HPF Urine Yeast (Budding) (NEGATIVE) /HPF Urine Culture Reflexed (NO) Urine Glucose (NEGATIVE) mg/dL SARS-CoV-2 (PCR) (NEGATIVE) - Procedures and Test Procedures and Tests throughout Hospitalization: Therapy Orders & Screens 04/09/21 16:10 Oxygen Nasal Cannula 3 lpm Comment: Diagnosis: epistaxis Respiratory Therapy Assessment DAILY Comment: Diagnosis: epistaxis - Discharge Disposition: Home, Self-Care Condition: Stable Prescriptions: New Cephalexin Mh 500 mg [Keflex 500 mg] 500 mg PO TID capsule Continue Ascorbic Acid [Vitamin C] 1,000 mg PO DAILY Cyanocobalamin (Vitamin B-12) [Vitamin B12] 2,500 mcg PO DAILY Torsemide 100 mg PO BID Rosuvastatin Calcium 10 mg PO HS Potassium Chloride [Klor-Con] 20 meq PO BID Omeprazole Magnesium 20 mg PO DAILY Montelukast Sodium 10 mg [Singulair 10 MG] 10 mg PO DAILY Metoprolol Tartrate 25 mg [Lopressor 25MG Tab] 25 mg PO BID Magnesium Oxide 400 mg [Mag-Ox 400] 400 mg PO TID Lisinopril 5 mg [Zestril 5 MG] 5 mg PO DAILY Levothyroxine Sodium 100 Mcg [Synthroid 100 Mcg] 100 mcg PO DAILY Isosorbide Mononitrate [Isosorbide Mononitrate ER] 30 mg PO DAILY Hydrocodone/Acetaminophen [Hydrocodone-Acetamin 5-325 mg] 1 tab PO Q4HPRN PRN MDD 6 PRN Reason: Pain Gabapentin [Neurontin] 600 mg PO BID Fosfomycin Tromethamine 3 gm PO WEEKLY Fluticasone Propionate [Flovent 110 Mcg MDI] 1 spray IN BID Fluconazole 150 mg PO WEEKLY Ferrous Gluconate 324 mg PO TID Dapagliflozin Propanediol [Farxiga] 10 mg PO QAM Duloxetine HCl [Cymbalta] 60 mg PO DAILY Buspirone HCl [Buspar] 10 mg PO BID Budesonide 0.5 mg/2 ml [Pulmicort 0.5 mg/2 ml Respules] 1 vial PO UD Insulin Glargine,Hum.rec.anlog [Basaglar Kwikpen U-100] 36 unit SQ QAM Allopurinol 300 mg [Zyloprim 300 mg] 600 mg PO DAILY Albuterol Sulfate [Albuterol Sulfate Hfa] 2 inh PO Q6H Icosapent Ethyl [Vascepa] 2 gm PO BID Semaglutide [Ozempic] 1 mg SQ WEEKLY Docusate Sodium 100 mg [Colace 100 MG] 100 mg PO TID Insulin Lispro [Humalog] 10 unit SQ TIDAC Cholecalciferol (Vitamin D3) [Vitamin D3] 125 mcg PO DAILY Discontinued Apixaban [Eliquis] 2.5 mg PO BID Aspirin EC 81 mg [Ecotrin 81 mg] 81 mg PO DAILY Additional Instructions: -[facility] CHANGED AT [facility] ON 04/09/2021. [facility] LONG TERM ORDERS: -CONTINUE PREVIOUS LONG TERM ORDERS -SEE ATTACHED MEDICATION LIST FOR MEDICATION ORDERS. Follow up with: SERJIO CONRAD [Primary Care Provider] - GIOVANNI HOPE [NON-STAFF PHY W/O PRIVILEGES] - 1 Week
[2021-04-10 08:06] VITALS: BP 109/55; PULSE 83
[2021-04-10 08:36] LABS: Lymphocytes 14 % (24-44); Neutrophils 86 % (36.0-66.0); Total Cells Counted 100
[2021-04-10 08:37] LABS: Platelet Estimate NORMAL (NORMAL)
[2021-04-10] MEDS: NORCO 5/325 MG PO PRN (09:15)
[2021-04-10] MEDS ORDERED: Vitamin B-12 500 MCG PO SCH (10:00)
[2021-04-10] MEDS ORDERED: Zestril 5 MG PO SCH (10:00)
[2021-04-10] MEDS ORDERED: Vitamin C 500 MG PO SCH (10:00)
[2021-04-10] MEDS ORDERED: Protonix 40MG Tablet PO SCH (10:00)
[2021-04-10] MEDS ORDERED: VITAMIN D PO SCH (10:00)
[2021-04-10] MEDS ORDERED: SYNTHROID 100 MCG PO SCH (10:00)
[2021-04-10] MEDS ORDERED: Singulair 10 MG PO SCH (10:00)
[2021-04-10] MEDS ORDERED: OMEPRAZOLE MAGNESIUM 20 MG PO SCH (10:00)
[2021-04-10] MEDS ORDERED: INSULIN GLARGINE HUM REC ANLOG 36 UNIT SQ SCH (10:00)
[2021-04-10] MEDS ORDERED: Lantus Insulin SQ SCH (10:00)
[2021-04-10] MEDS ORDERED: NON-FORMULARY ITEM (Cyanocobalamin (Vitamin B-12) [Vitamin B12] 2,500 MCG) PO SCH (10:00)
[2021-04-10] MEDS ORDERED: NON-FORMULARY ITEM (Ascorbic Acid [Vitamin C] 1,000 MG) PO SCH (10:00)
[2021-04-10] MEDS ORDERED: Imdur 30 MG PO SCH (10:00)
[2021-04-10] MEDS ORDERED: CHOLECALCIFEROL 125 MCG PO SCH (10:00)
[2021-04-10] MEDS ORDERED: GABAPENTIN 300 MG PO SCH (10:00)
[2021-04-10] MEDS ORDERED: NEURONTIN 300 MG PO SCH (10:00)
[2021-04-16] MEDS ORDERED: NON-FORMULARY ITEM (Semaglutide [Ozempic] 1 MG) SQ SCH (10:00)
[2021-04-16] MEDS ORDERED: DIFLUCAN PO SCH (10:00)
== END 2021-04-10 10:15 ==
LOC: ED 11:48 → MED SURG 15:39
PROVIDERS: ADMIT Family Medicine; ATTEND Family Medicine
DX: R04.0 Epistaxis (principal); N17.9 Acute kidney failure, unspecified; E87.1 Hypo-osmolality and hyponatremia; Z79.899 Other long term (current) drug therapy; Z79.01 Long term (current) use of anticoagulants; Z20.828 Contact with and (suspected) exposure to other viral communicable diseases
CPT/HCPCS: 36000; 36415; 80053; 81001; 83605; 85025; 87077; 87086; 87186; 93268; 94640; 94760; 96360; 99285; G0378; U0003; J1817; A9270-GY

== ENCOUNTER 2021-04-12 12:30 | Emergency (ER) | payer MEDICARE ==
--- NOTE | 2021-04-12 12:33 | ERPHSYRPT ---
- History of Present Illness Time Seen by Provider: 04/12/21 12:32 Historian: patient, EMS Exam Limitations: clinical condition Physician History: This is a 80-year-old white female patient of Dr. Lou who is a resident of [facility] and has multiple medical problems including peripheral neuropathy, insulin-dependent diabetes, hypothyroidism, DJD, atrial fibrillation and is on Eliquis. Recently, the patient was seen in this emergency department as well as admitted and discharged secondary to significant epistaxis. The Eliquis was stopped briefly and then restarted as did her nosebleed. She has a Rhino Rocket in her right nostril. Patient states that she thinks she is constipated. She does not recall when her last normal bowel movement was. She presents to the emergency department today with abdominal pain and nausea as well as abdominal distention. Patient has baseline anemia and is on iron supplementation. Patient is a full code. Timing/Duration: today Activities at Onset: none Quality: cramping, pressure, tightness Abdominal Pain Onset Location: generalized abdomen Pain Radiation: no radiation Severity of Pain-Max: moderate Severity of Pain-Current: moderate Modifying Factors: Improves With: vomiting Associated Symptoms: nausea, vomiting, weakness Previous symptoms: no prior history, different symptoms, recently seen, recent hospitalization, recently treated Allergies/Adverse Reactions: adhesive tape Allergy (Verified 04/09/21 12:00) atorvastatin [From Lipitor] Allergy (Verified 04/09/21 12:00) bacitracin Allergy (Verified 04/09/21 12:00) codeine Allergy (Verified 04/09/21 12:00) NSAIDS (Non-Steroidal Anti-Inflamma Allergy (Verified 04/09/21 12:00) Sulfa (Sulfonamide Antibiotics) Allergy (Verified 04/09/21 12:00) Home Medications: Albuterol Sulfate [Albuterol Sulfate Hfa] 2 inh PO Q6H 04/09/21 [History] Allopurinol 300 mg [Zyloprim 300 mg] 600 mg PO DAILY 04/09/21 [History] Ascorbic Acid [Vitamin C] 1,000 mg PO DAILY 04/09/21 [History] Budesonide 0.5 mg/2 ml [Pulmicort 0.5 mg/2 ml Respules] 1 vial PO UD 04/09/21 [History] Buspirone HCl [Buspar] 10 mg PO BID 04/09/21 [History] Cholecalciferol (Vitamin D3) [Vitamin D3] 125 mcg PO DAILY 04/09/21 [History] Cyanocobalamin (Vitamin B-12) [Vitamin B12] 2,500 mcg PO DAILY 04/09/21 [History] Dapagliflozin Propanediol [Farxiga] 10 mg PO QAM 04/09/21 [History] Docusate Sodium 100 mg [Colace 100 MG] 100 mg PO TID 04/09/21 [History] Duloxetine HCl [Cymbalta] 60 mg PO DAILY 04/09/21 [History] Ferrous Gluconate 324 mg PO TID 04/09/21 [History] Fluconazole 150 mg PO WEEKLY 04/09/21 [History] Fluticasone Propionate [Flovent 110 Mcg MDI] 1 spray IN BID 04/09/21 [History] Fosfomycin Tromethamine 3 gm PO WEEKLY 04/09/21 [History] Gabapentin [Neurontin] 600 mg PO BID 04/09/21 [History] Hydrocodone/Acetaminophen [Hydrocodone-Acetamin 5-325 mg] 1 tab PO Q4HPRN PRN MDD 6 04/09/21 [History] Icosapent Ethyl [Vascepa] 2 gm PO BID 04/09/21 [History] Insulin Glargine,Hum.rec.anlog [Basaglar Kwikpen U-100] 36 unit SQ QAM 04/09/21 [History] Insulin Lispro [Humalog] 10 unit SQ TIDAC 04/09/21 [History] Isosorbide Mononitrate [Isosorbide Mononitrate ER] 30 mg PO DAILY 04/09/21 [History] Levothyroxine Sodium 100 Mcg [Synthroid 100 Mcg] 100 mcg PO DAILY 04/09/21 [History] Lisinopril 5 mg [Zestril 5 MG] 5 mg PO DAILY 04/09/21 [History] Magnesium Oxide 400 mg [Mag-Ox 400] 400 mg PO TID 04/09/21 [History] Metoprolol Tartrate 25 mg [Lopressor 25MG Tab] 25 mg PO BID 04/09/21 [History] Montelukast Sodium 10 mg [Singulair 10 MG] 10 mg PO DAILY 04/09/21 [History] Omeprazole Magnesium 20 mg PO DAILY 04/09/21 [History] Potassium Chloride [Klor-Con] 20 meq PO BID 04/09/21 [History] Rosuvastatin Calcium 10 mg PO HS 04/09/21 [History] Semaglutide [Ozempic] 1 mg SQ WEEKLY 04/09/21 [History] Torsemide 100 mg PO BID 04/09/21 [History] Hx Tetanus, Diphtheria Vaccination/Date Given: Yes Hx Influenza Vaccination/Date Given: Yes Hx Pneumococcal Vaccination/Date Given: Yes Travel Risk - International Travel Have you traveled outside of the country in past 3 weeks: No - Coronavirus Screening Are you exhibiting any of the following symptoms?: No Close contact with a COVID-19 positive Pt in past 14-21 Days: No - Vaccine Status Have you recieved a Covid-19 vaccination: Yes Bicycle Inspector: Moderna - Vaccination Dates Date of 2cond Vaccination (if applicable): unknown - Review of Systems Constitutional: Weakness Eyes: No Symptoms Ears, Nose, & Throat: No Symptoms Respiratory: No Symptoms Cardiac: No Symptoms Abdominal/Gastrointestinal: Abdominal Pain, Nausea, Vomiting Genitourinary Symptoms: No Symptoms Musculoskeletal: No Symptoms Skin: No Symptoms Neurological: No Symptoms Psychological: No Symptoms Endocrine: No Symptoms Hematologic/Lymphatic: No Symptoms Immunological/Allergic: No Symptoms All Other Systems: Reviewed and Negative - Past Medical History Pertinent Past Medical History: Yes Neurological History: Peripheral Neuropathy Cardiac History: Arrhythmia Respiratory History: Asthma Musculoskeletal History: Arthritis, Degenerative Disk Disease, Osteoarthritis - Past Surgical History Past Surgical History: Yes Gastrointestinal: Hernia Repair Musculoskeletal: Orthopedic Surgery Other Surgical History: rt knee - Social History Smoking Status: Never smoker Exposure to second hand smoke: No Drug Use: none Patient Lives Alone: No Significant Family History: no pertinent family hx - Nursing Vital Signs Nursing Vital Signs: Initial Vital Signs Temperature 97.8 F 04/12/21 12:32 Pulse Rate 98 H 04/12/21 12:32 Respiratory Rate 18 04/12/21 12:32 Blood Pressure 76/45 04/12/21 12:32 O2 Sat by Pulse Oximetry 100 04/12/21 12:32 Pain Scale Pain Intensity 9 - Physical Exam General Appearance: moderate distress, alert, anxiety, obese Eye Exam: PERRL/EOMI, eyes nml inspection Ears, Nose, Throat Exam: normal ENT inspection, moist mucous membranes Neck Exam: normal inspection, non-tender, supple, full range of motion Respiratory Exam: normal breath sounds, lungs clear, airway intact, No chest tenderness, No respiratory distress Cardiovascular Exam: regular rate/rhythm, normal heart sounds, normal peripheral pulses Gastrointestinal/Abdomen Exam: tenderness, distention, guarding Pelvic Exam: not done Rectal Exam: not done Back Exam: normal inspection, normal range of motion, No CVA tenderness, No vertebral tenderness Extremity Exam: normal inspection, normal range of motion, pelvis stable Neurologic Exam: alert, oriented x 3, cooperative, media assistant II-XII nml as tested Skin Exam: normal color, warm, dry Lymphatic Exam: No adenopathy SpO2 Interpretation: normal O2 Delivery: Room Air - Course Nursing assessment & vital signs reviewed: Yes Ordered Tests: Active Orders 24 hr Category Date Time Status Enema STAT Care 04/12/21 14:46 Active IV Insertion STAT Care 04/12/21 12:44 Active IV Insertion-2nd Peripheral STAT Care 04/12/21 13:27 Active NGT [Gastric Tube Insertion] STAT Care 04/12/21 13:00 Active ABDOMEN AND PELVIS W/0 CONTRAS [CT] Stat Exams 04/12/21 12:45 Completed AMYLASE Stat Lab 04/12/21 13:10 Completed CBC W DIFF Stat Lab 04/12/21 13:10 Results CMP Stat Lab 04/12/21 13:10 Completed CULTURE,URINE Stat Lab 04/12/21 15:56 Ordered LIPASE Stat Lab 04/12/21 13:10 Completed Lactic Acid Stat Lab 04/12/21 13:01 Completed Lactic Acid Stat Lab 04/12/21 15:05 Completed Manual Differential NC Stat Lab 04/12/21 13:10 Results Pathologist Review Stat Lab 04/12/21 13:10 Results UA W/RFX UR CULTURE Stat Lab 04/12/21 15:56 Completed Medication Summary Generic Name Dose Route Start Last Admin Trade Name Freq PRN Reason Stop Dose Admin Dopamine HCl/Dextrose 250 mls @ 6.396 mls/hr 04/12/21 12:47 04/12/21 13:01 Dopamine 400 Mg/D5w 250ml Premix IV 05/12/21 12:46 10 mcg/kg/min .Q24H PRN 12.791 mls/hr SEVERE HYPOTENSION Titration Protocol 5 MCG/KG/MIN Sodium Chloride 1,000 mls @ 250 mls/hr 04/12/21 15:00 04/12/21 14:51 Sodium Chloride 0.9% 1000 Ml IV 05/12/21 14:59 250 mls/hr .Q4H PUNEET Administration Discontinued Medications Generic Name Dose Route Start Last Admin Trade Name Freq PRN Reason Stop Dose Admin Fentanyl Citrate 25 mcg 04/12/21 13:35 04/12/21 13:40 Sublimaze 100 Mcg/2 Ml IV 04/12/21 13:36 25 mcg STAT ONE Administration Fentanyl Citrate Confirm 04/12/21 13:37 Sublimaze 100 Mcg/2 Ml Administered 04/12/21 13:38 Dose 100 mcg .ROUTE .STK-MED ONE Sodium Chloride 1,000 mls @ 999 mls/hr 04/12/21 12:44 04/12/21 13:40 Sodium Chloride 0.9% 1000 Ml IV 04/12/21 13:44 999 mls/hr .Q1H1M STA Administration Sodium Chloride Confirm 04/12/21 12:45 Sodium Chloride 0.9% 1000 Ml Administered 04/12/21 12:46 Dose 1,000 mls @ ud .ROUTE .STK-MED ONE Sodium Chloride Confirm 04/12/21 13:21 Sodium Chloride 0.9% 1000 Ml Administered 04/12/21 13:22 Dose 1,000 mls @ ud .ROUTE .STK-MED ONE Meropenem 1 g/ Sodium Chloride 100 mls @ 200 mls/hr 04/12/21 14:36 04/12/21 14:52 IV 04/12/21 15:05 200 mls/hr STAT ONE Administration Sodium Chloride Confirm 04/12/21 14:45 Sodium Chloride 100ml Mini-Bag Plus Administered 04/12/21 14:46 Dose 100 mls @ ud IV .STK-MED ONE Sodium Chloride Confirm 04/12/21 14:45 Sodium Chloride 0.9% 1000 Ml Administered 04/12/21 14:46 Dose 1,000 mls @ ud .ROUTE .STK-MED ONE Lorazepam 0.5 mg 04/12/21 13:51 04/12/21 14:11 Ativan 2 Mg/1 Ml Vial IV 04/12/21 13:52 0.5 mg STAT ONE Administration Lorazepam Confirm 04/12/21 13:51 Ativan 2 Mg/1 Ml Vial Administered 04/12/21 13:52 Dose 2 mg .ROUTE .STK-MED ONE Meropenem Confirm 04/12/21 14:45 Merrem 1 Gm Administered 04/12/21 14:46 Dose 1 g IV .STK-MED ONE Morphine Sulfate 2 mg 04/12/21 12:44 04/12/21 13:42 Morphine Sulfate 2 Mg Inj IV 04/12/21 12:45 Not Given STAT ONE Ondansetron HCl 4 mg 04/12/21 12:44 04/12/21 13:41 Zofran 4 Mg/2 Ml Vial IV 04/12/21 12:45 Not Given STAT ONE Prochlorperazine Edisylate Confirm 04/12/21 14:09 Compazine 10 Mg/2 Ml Administered 04/12/21 14:10 Dose 10 mg .ROUTE .STK-MED ONE Prochlorperazine Edisylate 5 mg 04/12/21 14:29 04/12/21 14:31 Compazine 10 Mg/2 Ml IV 04/12/21 14:30 5 mg STAT ONE Administration Lab/Rad Data: Laboratory Result Diagrams 04/12/21 13:10 04/12/21 13:10 Laboratory Results 04/12/21 04/12/21 04/12/21 Range/Units 15:56 15:05 13:15 WBC (4.0-10.5) K/mm3 RBC (4.1-5.4) M/mm3 Hgb (12.0-16.0) gm/dl Hct (35-47) % MCV (78-100) fl MCH (26-32) pg MCHC (32-36) g/dl RDW (11.5-14.0) % Plt Count (150-450) K/mm3 MPV (7.5-11.0) fl Absolute Granulocytes (1.4-6.9) Segmented Neutrophils (36.0-66.0) % Band Neutrophils (0.0-2.0) % Lymphocytes (Manual) (24-44) % Monocytes (Manual) (0.0-12.0) % Eosinophils (Manual) (0.00-3.0) % Metamyelocytes % Platelet Estimate (NORMAL) RBC Morphology Polychromasia Poikilocytosis Anisocytosis Macrocytosis Smear Path Review Sodium (137-145) mmol/L Potassium (3.5-5.1) mmol/L Chloride (98-107) mmol/L Carbon Dioxide (22-30) mmol/L Anion Gap (5-15) MEQ/L BUN (7-17) mg/dL Creatinine (0.52-1.04) mg/dL Estimated GFR ML/MIN Glucose (74-106) mg/dL Lactic Acid 3.1 H (0.4-2.0) Calcium (8.4-10.2) mg/dL Total Bilirubin (0.2-1.3) mg/dL AST (14-36) U/L ALT (0-35) U/L Alkaline Phosphatase (38-126) U/L Serum Total Protein (6.3-8.2) g/dL Albumin (3.5-5.0) g/dL Amylase (30-110) U/L Lipase (23-300) U/L Urine Color EULALIA (YELLOW) Urine Appearance CLOUDY (CLEAR) Urine pH 5.0 (5-6) Ur Specific [place] 1.020 (1.005-1.025) Urine Protein 100 (Negative) Urine Ketones NEGATIVE (NEGATIVE) Urine Blood LARGE (0-5) Rj/ul Urine Nitrite NEGATIVE (NEGATIVE) Urine Bilirubin NEGATIVE (NEGATIVE) Urine Urobilinogen NEGATIVE (0-1) mg/dL Ur Leukocyte Esterase MODERATE (NEGATIVE) Urine WBC (Auto) 51-100 (0-5) /HPF Urine RBC (Auto) >101 (0-2) /HPF U Epithel Cells (Auto) RARE (FEW) /HPF Urine Bacteria (Auto) MANY (NEGATIVE) /HPF U Non-Squamous Epi Cells RARE (FEW) /HPF Calcium Oxalate Crystal 26-50 (NEGATIVE) /HPF Urine Mucus (Auto) SLIGHT (NEGATIVE) /HPF Urine Culture Reflexed ORDERED SEPARATELY (NO) Urine Glucose NEGATIVE (NEGATIVE) mg/dL ABO Group Rh Factor Antibody Screen (NEGATIVE) Crossmatch COMPATIBLE (COMPATIBLE) 04/12/21 04/12/21 04/12/21 Range/Units 13:15 13:10 13:10 WBC 28.4 H* (4.0-10.5) K/mm3 RBC 3.68 L (4.1-5.4) M/mm3 Hgb 10.0 L (12.0-16.0) gm/dl Hct 33.5 L (35-47) % MCV 91.0 (78-100) fl MCH 27.2 (26-32) pg MCHC 29.9 L (32-36) g/dl RDW 19.5 H (11.5-14.0) % Plt Count 375 (150-450) K/mm3 MPV 8.5 (7.5-11.0) fl Absolute Granulocytes 25.23 H (1.4-6.9) Segmented Neutrophils 66 (36.0-66.0) % Band Neutrophils 23 H (0.0-2.0) % Lymphocytes (Manual) 8 L (24-44) % Monocytes (Manual) 1 (0.0-12.0) % Eosinophils (Manual) 1 (0.00-3.0) % Metamyelocytes 1 % Platelet Estimate NORMAL (NORMAL) RBC Morphology ABNORMAL Polychromasia RARE Poikilocytosis 1+ Anisocytosis 2+ Macrocytosis 1+ Smear Path Review Pending Sodium 130 L (137-145) mmol/L Potassium 5.2 H (3.5-5.1) mmol/L Chloride 94 L (98-107) mmol/L Carbon Dioxide 19 L (22-30) mmol/L Anion Gap 22.4 H (5-15) MEQ/L BUN 114 H (7-17) mg/dL Creatinine 2.34 H (0.52-1.04) mg/dL Estimated GFR 21.2 ML/MIN Glucose 175 H (74-106) mg/dL Lactic Acid (0.4-2.0) Calcium 9.0 (8.4-10.2) mg/dL Total Bilirubin 0.30 (0.2-1.3) mg/dL AST 36 (14-36) U/L ALT 26 (0-35) U/L Alkaline Phosphatase 156 H (38-126) U/L Serum Total Protein 6.8 (6.3-8.2) g/dL Albumin 3.9 (3.5-5.0) g/dL Amylase 346 H (30-110) U/L Lipase 626 H (23-300) U/L Urine Color (YELLOW) Urine Appearance (CLEAR) Urine pH (5-6) Ur Specific [place] (1.005-1.025) Urine Protein (Negative) Urine Ketones (NEGATIVE) Urine Blood (0-5) Rj/ul Urine Nitrite (NEGATIVE) Urine Bilirubin (NEGATIVE) Urine Urobilinogen (0-1) mg/dL Ur Leukocyte Esterase (NEGATIVE) Urine WBC (Auto) (0-5) /HPF Urine RBC (Auto) (0-2) /HPF U Epithel Cells (Auto) (FEW) /HPF Urine Bacteria (Auto) (NEGATIVE) /HPF U Non-Squamous Epi Cells (FEW) /HPF Calcium Oxalate Crystal (NEGATIVE) /HPF Urine Mucus (Auto) (NEGATIVE) /HPF Urine Culture Reflexed (NO) Urine Glucose (NEGATIVE) mg/dL ABO Group A Rh Factor NEGATIVE Antibody Screen NEGATIVE (NEGATIVE) Crossmatch COMPATIBLE (COMPATIBLE) 04/12/21 Range/Units 13:01 WBC (4.0-10.5) K/mm3 RBC (4.1-5.4) M/mm3 Hgb (12.0-16.0) gm/dl Hct (35-47) % MCV (78-100) fl MCH (26-32) pg MCHC (32-36) g/dl RDW (11.5-14.0) % Plt Count (150-450) K/mm3 MPV (7.5-11.0) fl Absolute Granulocytes (1.4-6.9) Segmented Neutrophils (36.0-66.0) % Band Neutrophils (0.0-2.0) % Lymphocytes (Manual) (24-44) % Monocytes (Manual) (0.0-12.0) % Eosinophils (Manual) (0.00-3.0) % Metamyelocytes % Platelet Estimate (NORMAL) RBC Morphology Polychromasia Poikilocytosis Anisocytosis Macrocytosis Smear Path Review Sodium (137-145) mmol/L Potassium (3.5-5.1) mmol/L Chloride (98-107) mmol/L Carbon Dioxide (22-30) mmol/L Anion Gap (5-15) MEQ/L BUN (7-17) mg/dL Creatinine (0.52-1.04) mg/dL Estimated GFR ML/MIN Glucose (74-106) mg/dL Lactic Acid 5.1 H (0.4-2.0) Calcium (8.4-10.2) mg/dL Total Bilirubin (0.2-1.3) mg/dL AST (14-36) U/L ALT (0-35) U/L Alkaline Phosphatase (38-126) U/L Serum Total Protein (6.3-8.2) g/dL Albumin (3.5-5.0) g/dL Amylase (30-110) U/L Lipase (23-300) U/L Urine Color (YELLOW) Urine Appearance (CLEAR) Urine pH (5-6) Ur Specific [place] (1.005-1.025) Urine Protein (Negative) Urine Ketones (NEGATIVE) Urine Blood (0-5) Rj/ul Urine Nitrite (NEGATIVE) Urine Bilirubin (NEGATIVE) Urine Urobilinogen (0-1) mg/dL Ur Leukocyte Esterase (NEGATIVE) Urine WBC (Auto) (0-5) /HPF Urine RBC (Auto) (0-2) /HPF U Epithel Cells (Auto) (FEW) /HPF Urine Bacteria (Auto) (NEGATIVE) /HPF U Non-Squamous Epi Cells (FEW) /HPF Calcium Oxalate Crystal (NEGATIVE) /HPF Urine Mucus (Auto) (NEGATIVE) /HPF Urine Culture Reflexed (NO) Urine Glucose (NEGATIVE) mg/dL ABO Group Rh Factor Antibody Screen (NEGATIVE) Crossmatch (COMPATIBLE) - Progress Progress Note: 04/12/21 14:27 Medical decision making: This patient presents with significant back and abdominal pain and distention. She has history of known symptomatic anemia. She presents with systolic blood pressure in the low 70s. Patient appears to be going in and out of consciousness with statements of feeling very cool and diaphoretic. Patient recently was seen in the emergency department twice for significant nosebleeds requiring placement of a Rhino Rocket and admission for observation. Patient was in significant distress. Patient stated that she felt very sleepy and drowsy and just wanted to sleep. Therefore, I made the decision to transfuse 1 unit of O- packed red blood cells. In addition, we gave the patient normal saline intravenous bolus and placed her on low-dose do pamine. Patient was brought in with IV line in place but no labs were obtained and I was concerned that her hemoglobin may be significantly low and given the distress that she is in, I did not want a wait until the hemoglobin came back to then decide to give her blood. 04/12/21 14:34 CAT scan of the abdomen pelvis without contrast shows a picture consistent with partial small bowel obstruction with transition point in the right mid pelvis. In addition, there is diffuse fecal stasis with rectal impaction. 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 I spoke with Dr. Francois, the [facility] hospitalist. I reviewed the patient history, condition, physical findings, lab results, and x-ray results. He would like me to add 1 g of vancomycin intravenously. He accepts the patient for transfer. Counseled pt/family regarding: lab results, diagnosis, rad results - Departure Departure Disposition: In-patient Admission Clinical Impression: Abdominal pain, Vomiting, Hypotension, Small bowel obstruction, Sepsis, Renal insufficiency, UTI (urinary tract infection), Pancreatitis Condition: Serious Critical Care Time: Yes Critical Care Time(excluding separately billable procedures): Critical 30-74 mins Referrals: SERJIO CONRAD [Primary Care Provider] -
[2021-04-12] MEDS ORDERED: Zofran 4 MG/2 ML VIAL IV ONE (12:44)
[2021-04-12] MEDS ORDERED: Sodium Chloride 0.9% 1000 ML 1,000 ML IV STA (12:44)
[2021-04-12] MEDS ORDERED: MORPHINE SULFATE 2 MG INJ IV ONE (12:44)
[2021-04-12] MEDS ORDERED: Sodium Chloride 0.9% 1000 ML 1,000 ML ONE ×3 (12:45→14:45)
[2021-04-12] MEDS ORDERED: Dopamine 400 MG/D5W 250ML PREMIX 250 ML IV ONE (12:45)
[2021-04-12] MEDS ORDERED: Dopamine 400 MG/D5W 250ML PREMIX 250 ML IV PRN (12:47)
[2021-04-12 13:31] LABS: Hematocrit 33.5 % (35-47); Mean Corpuscular Hemoglobin 27.2 pg (26-32); Mean Corpuscular Hgb Concent. 29.9 g/dl (32-36); Mean Platelet Volume 8.5 fl (7.5-11.0); Platelet Count 375 K/mm3 (150-450); Red Blood Count 3.68 M/mm3 (4.1-5.4); Red Cell Distribution Width 19.5 % (11.5-14.0)
[2021-04-12 13:32] LABS: White Blood Count 28.4 K/mm3 (4.0-10.5)
[2021-04-12] MEDS ORDERED: SUBLIMAZE 100 MCG/2 ML IV ONE (13:35)
[2021-04-12] MEDS ORDERED: SUBLIMAZE 100 MCG/2 ML ONE (13:37)
[2021-04-12 13:40] LABS: ALBUMIN 3.9 g/dL (3.5-5.0); ANION GAP 22.4 MEQ/L (5-15); BILIRUBIN,TOTAL 0.3 mg/dL (0.2-1.3); Creatinine 1 2.34 mg/dL (0.52-1.04); EST GLOMERULAR FILTRATION RATE 21.2 ML/MIN; Potassium 5.2 mmol/L (3.5-5.1); Total Protein 6.8 g/dL (6.3-8.2)
[2021-04-12] MEDS ORDERED: Ativan 2 MG/1 ML VIAL IV ONE (13:51)
[2021-04-12] MEDS ORDERED: Ativan 2 MG/1 ML VIAL ONE (13:51)
[2021-04-12 13:56] LABS: BAND 23 % (0.0-2.0); Eosinophil 1 % (0.00-3.0); Lymphocytes 8 % (24-44); Metamyelocyte 1 %; Monocyte 1 % (0.0-12.0); Neutrophils 66 % (36.0-66.0); Platelet Estimate NORMAL (NORMAL); Total Cells Counted 100
[2021-04-12 13:57] LABS: ANISOCYTOSIS 2+; Poikilocytosis 1+
[2021-04-12 13:58] LABS: Macrocytosis 1+; Polychromasia RARE
[2021-04-12 13:59] LABS: Absolute Neutrophil Ct (ANC) 25.23 (1.4-6.9)
[2021-04-12 14:02] LABS: ABO TYPING A; Antibody Screen NEGATIVE (NEGATIVE); RH TYPING NEGATIVE
[2021-04-12 14:04] LABS: CROSS MATCH (PRBC) COMPATIBLE (COMPATIBLE)
[2021-04-12] MEDS ORDERED: Compazine 10 MG/2 ML ONE (14:09)
[2021-04-12] MEDS ORDERED: Compazine 10 MG/2 ML IV ONE (14:29)
--- NOTE | 2021-04-12 14:31 | XRAY ---
Indication: Abdomen pain and constipation. Episode of hypotension. Multiple contiguous images obtained through the abdomen and pelvis without contrast. Comparison: None Lung bases demonstrates bibasilar subsegmental atelectasis/scarring and small right lower lobe calcified granuloma. No infiltrate or effusion. Heart is enlarged. Small hiatal hernia with NG tube tip in the stomach. Noncontrasted stomach unremarkable. Jejunal bowel loops are abnormally fluid distended up to 6.8 cm with fluid leveling. Ileal bowel loops appear normal in course and caliber. Partial obstruction is of primary concern with transition point right mid pelvis, site of multiple suture material. There is also moderate/significant diffuse colonic fecal debris throughout including moderate rectal impaction. No free fluid/air. Chávez balloon catheter tip is in a near empty urinary bladder with a few urinary bladder calculi, largest 9 mm. Gallbladder contracted without gallstones. 1.2 cm right mid renal exophytic cyst. Remaining liver, gallbladder, pancreas, spleen, adrenal glands, kidneys, and ureters are unremarkable for noncontrast exam. Heavy scattered vascular calcifications. No AAA. Osseous structures demonstrates osteopenia, moderate levorotoscoliosis centered at L2, multilevel remote thoracolumbar compression fractures, L3 kyphoplasty, moderate/advanced multilevel degenerative spondylosis, 7-8 mm L4 spondylolisthesis, old distal sacrum fracture, and right total hip arthroplasty. Incidental left gluteal spinal stimulator device with lead terminating approximately left S3 level presacral. Impression: 1. Abnormal fluid distended small bowel loops as detailed with transition point right mid pelvis favoring partial small bowel obstruction. NG tube in situ with the tip in the stomach. 2. Diffuse fecal stasis with rectal impaction. 3. Incidental bibasilar atelectasis/scarring, cardiomegaly, small hiatal hernia, Chávez catheter in situ with urinary bladder micro-calculi, small right renal cyst, scattered arteriosclerotic disease, and chronic bony findings.
[2021-04-12] MEDS ORDERED: Merrem 1 GM 1 G in Sodium Chloride 100ML MINI-BAG PLUS 100 ML IV ONE (14:36)
[2021-04-12] MEDS ORDERED: Sodium Chloride 100ML MINI-BAG PLUS 100 ML IV ONE (14:45)
[2021-04-12] MEDS ORDERED: Merrem 1 GM IV ONE (14:45)
[2021-04-12] MEDS ORDERED: Sodium Chloride 0.9% 1000 ML 1,000 ML IV SCH (15:00)
[2021-04-12 16:22] LABS: Appearance CLOUDY (CLEAR); Bacteria MANY /HPF (NEGATIVE); Bilirubin NEGATIVE (NEGATIVE); Blood LARGE Ery/ul (0-5); Calcium Oxalate Crystals 26-50 /HPF (NEGATIVE); Epithelial Cells RARE /HPF (FEW); Glucose NEGATIVE (NEGATIVE); Ketones NEGATIVE (NEGATIVE); Leukocyte Esterase MODERATE (NEGATIVE); Mucus SLIGHT /HPF (NEGATIVE); Nitrite NEGATIVE (NEGATIVE); Non-Squamous Epithelial Cells RARE /HPF (FEW); Protein,Urine Dip 100 (Negative); Urobilinogen NEGATIVE mg/dL (0-1); WBC 51-100 /HPF (0-5)
[2021-04-12 16:25] LABS: RBC >101 /HPF (0-2)
[2021-04-12] MEDS ORDERED: VANCOMYCIN 1 GRAM/200 ML BAG 1 GM/200 ML PIGGYBACK IV ONE ×2 (17:21→17:51)
[2021-04-12 18:02] VITALS: BP 90/42; PULSE 92; O2SAT 96
== END 2021-04-12 18:26 | disposition short-term general hospital (02) ==
LOC: ED 12:30
DX: R10.9 Unspecified abdominal pain (principal); R11.2 Nausea with vomiting, unspecified; I95.9 Hypotension, unspecified; K56.609 Unspecified intestinal obstruction, unspecified as to partial versus complete obstruction; A41.9 Sepsis, unspecified organism; N28.9 Disorder of kidney and ureter, unspecified; N39.0 Urinary tract infection, site not specified; K85.90 Acute pancreatitis without necrosis or infection, unspecified; Z79.899 Other long term (current) drug therapy
CPT/HCPCS: 36000; 36415; 51702; 74176; 80053; 81001; 82150; 83605; 83690; 84484; 85025; 86850; 86900; 86901; 86922; 87077; 87086; 87186; 96365; 96367; 96374; 96375; 99285; 99291; J1265; J2060; J3010; J3370

== ENCOUNTER 2021-05-15 10:27 | Emergency (ER) | payer MEDICARE ==
[2021-05-15] MEDS ORDERED: Sodium Chloride 0.9% 1000 ML 1,000 ML IV STA (10:35)
[2021-05-15] MEDS ORDERED: Sodium Chloride 0.9% 1000 ML 1,000 ML ONE (10:53)
[2021-05-15 10:55] LABS: Absolute Neutrophil Ct (ANC) 12.62 (1.4-6.9); BASOPHIL % 0.1 % (0.0-0.4); Basophil (Absolute #) 0.02 (0-0.4); Eosinophil % 0.4 % (0.00-5.0); Eosinophil (Absolute #) 0.06 (0-0.5); Hematocrit 35.4 % (35-47); Lymphocyte (Absolute #) 0.72 (1.0-4.6); Lymphocytes % 5.1 % (24.0-44.0); Mean Corpuscular Hgb Concent. 31.1 g/dl (32-36); Mean Platelet Volume 9.2 fl (7.5-11.0); Monocyte (Absolute #) 0.82 (0.0-1.3); Monocytes % 5.8 % (0.0-12.0); Neutrophil % 88.6 % (36.0-66.0); Platelet Count 168 K/mm3 (150-450); Red Blood Count 4.07 M/mm3 (4.1-5.4); White Blood Count 14.2 K/mm3 (4.0-10.5)
--- NOTE | 2021-05-15 11:04 | ERPHSYRPT ---
- History of Present Illness Time Seen by Provider: 05/15/21 10:40 Source: patient Exam Limitations: no limitations Patient Subjective Stated Complaint: confusion, poss UTI Triage Nursing Assessment: pt to ED by EMS for confusion and possible UTI per RN at [facility]. reported hx of urosepsis and RN stated that pt has been increasingly confused and having visual hallucinations since last night. pt c/o NVD and foot pain from recent fall, F RN stated that foot an xray was taken and was negative. RN did not state anything about NVD. pt is alert to self and year, knows she is in hospital but unsure which facility. Physician History: Patient is an 80-year-old female presents to our ED via EMS from [place]. Patient presents to our ED for evaluation of confusion and visual hallucinations. Symptoms were observed by nursing staff. Patient has an indwelling Chávez catheter. Staff is concerned with possible urinary tract infection. Patient has a history of urosepsis. Patient is alert and oriented x2. Patient states she has been experiencing nausea vomiting and diarrhea. Patient has pain at her right foot however this has already been x-rayed. Symptoms are progressive. Symptoms are moderate in intensity. No specific worsening or improving factors. No head trauma. No fever upon arrival. Patient voiced no other complaints or concerns at this time. Timing/Duration: today Severity: moderate Modifying Factors: Improves With: nothing Associated Symptoms: nausea, vomiting, other (Visual hallucinations) Allergies/Adverse Reactions: adhesive tape Allergy (Verified 05/15/21 10:59) atorvastatin [From Lipitor] Allergy (Verified 05/15/21 10:59) bacitracin Allergy (Verified 05/15/21 10:59) codeine Allergy (Verified 05/15/21 10:59) metoclopramide [From Reglan] Allergy (Verified 05/15/21 11:00) morphine Allergy (Verified 05/15/21 11:00) NSAIDS (Non-Steroidal Anti-Inflamma Allergy (Verified 05/15/21 10:59) oxycodone [From OxyContin] Allergy (Verified 05/15/21 11:00) Sulfa (Sulfonamide Antibiotics) Allergy (Verified 05/15/21 10:59) sulfamethoxazole [From Bactrim] Allergy (Verified 05/15/21 11:00) trimethoprim [From Bactrim] Allergy (Verified 05/15/21 11:00) Home Medications: Albuterol Sulfate [Albuterol Sulfate Hfa] 2 inh PO Q6H 04/09/21 [History] Allopurinol 300 mg [Zyloprim 300 mg] 600 mg PO DAILY 04/09/21 [History] Ascorbic Acid [Vitamin C] 1,000 mg PO DAILY 04/09/21 [History] Budesonide 0.5 mg/2 ml [Pulmicort 0.5 mg/2 ml Respules] 1 vial PO UD 04/09/21 [History] Buspirone HCl [Buspar] 10 mg PO BID 04/09/21 [History] Cholecalciferol (Vitamin D3) [Vitamin D3] 125 mcg PO DAILY 04/09/21 [History] Cyanocobalamin (Vitamin B-12) [Vitamin B12] 2,500 mcg PO DAILY 04/09/21 [History] Dapagliflozin Propanediol [Farxiga] 10 mg PO QAM 04/09/21 [History] Docusate Sodium 100 mg [Colace 100 MG] 100 mg PO TID 04/09/21 [History] Duloxetine HCl [Cymbalta] 60 mg PO DAILY 04/09/21 [History] Ferrous Gluconate 324 mg PO TID 04/09/21 [History] Fluconazole 150 mg PO WEEKLY 04/09/21 [History] Fluticasone Propionate [Flovent 110 Mcg MDI] 1 spray IN BID 04/09/21 [History] Fosfomycin Tromethamine 3 gm PO WEEKLY 04/09/21 [History] Gabapentin [Neurontin] 600 mg PO BID 04/09/21 [History] Icosapent Ethyl [Vascepa] 2 gm PO BID 04/09/21 [History] Insulin Glargine,Hum.rec.anlog [Basaglar Kwikpen U-100] 36 unit SQ QAM 04/09/21 [History] Insulin Lispro [Humalog] 10 unit SQ TIDAC 04/09/21 [History] Isosorbide Mononitrate [Isosorbide Mononitrate ER] 30 mg PO DAILY 04/09/21 [History] Levothyroxine Sodium 100 Mcg [Synthroid 100 Mcg] 100 mcg PO DAILY 04/09/21 [History] Lisinopril 5 mg [Zestril 5 MG] 5 mg PO DAILY 04/09/21 [History] Magnesium Oxide 400 mg [Mag-Ox 400] 400 mg PO TID 04/09/21 [History] Metoprolol Tartrate 25 mg [Lopressor 25MG Tab] 25 mg PO BID 04/09/21 [History] Montelukast Sodium 10 mg [Singulair 10 MG] 10 mg PO DAILY 04/09/21 [History] Potassium Chloride [Klor-Con] 20 meq PO BID 04/09/21 [History] Rosuvastatin Calcium 10 mg PO HS 04/09/21 [History] Semaglutide [Ozempic] 1 mg SQ WEEKLY 04/09/21 [History] Furosemide 40 mg [Lasix 40 MG] 40 mg PO DAILY 05/15/21 [History] Hx Tetanus, Diphtheria Vaccination/Date Given: Yes Hx Influenza Vaccination/Date Given: Yes Hx Pneumococcal Vaccination/Date Given: Yes Immunizations Up to Date: Yes Travel Risk - International Travel Have you traveled outside of the country in past 3 weeks: No - Coronavirus Screening Are you exhibiting any of the following symptoms?: No Close contact with a COVID-19 positive Pt in past 14-21 Days: No - Vaccine Status Have you recieved a Covid-19 vaccination: Yes Java Android Developer: Unknown - Vaccination Dates Dates if Unknown: unknown, 2 doses - Review of Systems Constitutional: No Symptoms, No Fever, No Chills Eyes: No Symptoms Ears, Nose, & Throat: No Symptoms Respiratory: No Symptoms, No Cough, No Dyspnea Cardiac: No Symptoms, No Chest Pain, No Edema, No Syncope Abdominal/Gastrointestinal: No Symptoms, No Abdominal Pain, No Nausea, No Vomiting, No Diarrhea Genitourinary Symptoms: No Symptoms, No Dysuria Musculoskeletal: No Symptoms, No Back Pain, No Neck Pain Skin: No Symptoms, No Rash Neurological: No Symptoms, No Dizziness, No Focal Weakness, No Sensory Changes Psychological: No Symptoms Endocrine: No Symptoms Hematologic/Lymphatic: No Symptoms Immunological/Allergic: No Symptoms All Other Systems: Reviewed and Negative - Past Medical History Pertinent Past Medical History: Yes Neurological History: Peripheral Neuropathy Cardiac History: Arrhythmia, Hypertension Respiratory History: Asthma, COPD Endocrine Medical History: Diabetes Type II Musculoskeletal History: Arthritis, Degenerative Disk Disease, Osteoarthritis Psycho-Social History: Anxiety Other Medical History: urosepsis, anemia, gout, neuromuscular dysfunction of bladder - Past Surgical History Past Surgical History: Yes Gastrointestinal: Hernia Repair Musculoskeletal: Orthopedic Surgery Other Surgical History: rt knee - Social History Smoking Status: Never smoker Exposure to second hand smoke: No Drug Use: none Patient Lives Alone: No ([place]) Significant Family History: no pertinent family hx - Nursing Vital Signs Nursing Vital Signs: Initial Vital Signs Temperature 96.4 F 05/15/21 10:32 Pulse Rate 91 H 05/15/21 10:32 Respiratory Rate 18 05/15/21 10:32 Blood Pressure 96/47 05/15/21 10:32 O2 Sat by Pulse Oximetry 100 05/15/21 10:32 Pain Scale Pain Intensity 0 - Physical Exam General Appearance: no apparent distress, alert Eye Exam: PERRL/EOMI, eyes nml inspection Ears, Nose, Throat Exam: normal ENT inspection, TMs normal, pharynx normal, moist mucous membranes Neck Exam: normal inspection, non-tender, supple, full range of motion Respiratory Exam: normal breath sounds, lungs clear, No respiratory distress Cardiovascular Exam: regular rate/rhythm, normal heart sounds, normal peripheral pulses Gastrointestinal/Abdomen Exam: soft, normal bowel sounds, No tenderness, No mass Back Exam: normal inspection, normal range of motion, No CVA tenderness, No vertebral tenderness Extremity Exam: normal inspection, normal range of motion, pelvis stable Neurologic Exam: alert, oriented x 3, cooperative, normal mood/affect, nml cerebellar function, nml station & gait, sensation nml, No motor deficits Skin Exam: normal color, warm, dry, No rash Lymphatic Exam: No adenopathy SpO2 Interpretation: normal SpO2: 100 O2 Delivery: Room Air - Course Nursing assessment & vital signs reviewed: Yes EKG Interpreted by Me: RATE (97), Sinus Rhythm, NORMAL INTERVALS, Right Bundle Branch Block - CT Exams Head CT Interpretation: Tele-radiologist Report (Acute intracranial hemorrhage or abnormal extra-axial fluid collection. No mass-effect. Fourth ventricle midline without hydrocephalus. Nonacute senile brain) Ordered Tests: Active Orders 24 hr Category Date Time Status Visual Presentation Manager STAT Care 05/15/21 10:35 Active EKG-ER Only STAT Care 05/15/21 10:35 Active IV Insertion STAT Care 05/15/21 10:35 Active Pulse Oximetry (ED) STAT Care 05/15/21 10:35 Active HEAD WITHOUT CONTRAST [CT] Stat Exams 05/15/21 10:39 Completed ABG [ARTERIAL BLOOD GASES] Stat Lab 05/15/21 15:20 Completed BLOOD CULTURE Stat Lab 05/15/21 10:51 Received BMP Stat Lab 05/15/21 14:08 Completed CBC W DIFF Stat Lab 05/15/21 10:50 Completed CMP Stat Lab 05/15/21 10:50 Completed CULTURE,URINE Stat Lab 05/15/21 11:35 Received INFLUENZA A+B SAPPHIRE Stat Lab 05/15/21 11:10 Completed Lactic Acid Stat Lab 05/15/21 10:35 Completed UA W/RFX UR CULTURE Stat Lab 05/15/21 11:35 Completed Medication Summary Generic Name Dose Route Start Last Admin Trade Name Freq PRN Reason Stop Dose Admin Sodium Bicarbonate 75 meq/ 1,075 mls @ 75 mls/hr 05/15/21 11:30 05/15/21 11:34 Dextrose/Sodium Chloride IV 06/14/21 11:29 75 mls/hr .[id number] PUNEET 75 mls/hr Administration Discontinued Medications Generic Name Dose Route Start Last Admin Trade Name Freq PRN Reason Stop Dose Admin Dextrose 50 ml 05/15/21 11:25 05/15/21 11:32 D50w 50 Ml Abboject IV 05/15/21 11:26 50 ml STAT ONE Administration Dextrose 50 ml 05/15/21 11:25 05/15/21 11:38 D50w 50 Ml Abboject IV 05/15/21 11:26 50 ml STAT ONE Administration Dextrose Confirm 05/15/21 11:30 D50w 50 Ml Abboject Administered 05/15/21 11:31 Dose 50 ml IV .STK-MED ONE Dextrose Confirm 05/15/21 11:37 D50w 50 Ml Abboject Administered 05/15/21 11:38 Dose 50 ml IV .STK-MED ONE Sodium Chloride 1,000 mls @ 999 mls/hr 05/15/21 10:35 05/15/21 11:58 Sodium Chloride 0.9% 1000 Ml IV 05/15/21 11:35 Infused .Q1H1M STA Infusion Sodium Chloride Confirm 05/15/21 10:53 Sodium Chloride 0.9% 1000 Ml Administered 05/15/21 10:54 Dose 1,000 mls @ ud .ROUTE .STK-MED ONE Dextrose/Sodium Chloride Confirm 05/15/21 11:31 Dextrose 5% -0.45 Nacl 1000 Ml Administered 05/15/21 11:32 Dose 1,000 mls @ ud IV .STK-MED ONE Ceftriaxone Sodium/Dextrose 1 g in 50 mls @ 100 mls/hr 05/15/21 11:56 05/15/21 12:37 Rocephin 1 Gm-D5w 50 Ml Bag IV 05/15/21 12:25 Infused STAT ONE Infusion Ceftriaxone Sodium/Dextrose Confirm 05/15/21 11:59 Rocephin 1 Gm-D5w 50 Ml Bag Administered 05/15/21 12:00 Dose 1 g in 50 mls @ ud IV .STK-MED ONE Insulin Human Regular 6 unit 05/15/21 11:25 05/15/21 11:38 Humulin R SQ 05/15/21 11:26 6 unit ONCE STA Administration Insulin Human Regular Confirm 05/15/21 11:37 Humulin R Administered 05/15/21 11:38 Dose 6 unit .ROUTE .STK-MED ONE Patiromer 8.4 gm 05/15/21 11:24 05/15/21 11:32 Veltassa PO 05/15/21 11:25 8.4 gm STAT STA Administration Patiromer Confirm 05/15/21 11:30 Veltassa Administered 05/15/21 11:31 Dose 8.4 gm PO .STK-MED ONE Sodium Bicarbonate Confirm 05/15/21 11:28 Sodium Bicarbonate 50 Meq/50 Ml Vial Administered 05/15/21 11:29 Dose 100 meq .ROUTE .STK-MED ONE Lab/Rad Data: Laboratory Result Diagrams 05/15/21 10:50 05/15/21 14:08 Laboratory Results 05/15/21 05/15/21 05/15/21 Range/Units 15:20 14:08 11:35 WBC (4.0-10.5) K/mm3 RBC (4.1-5.4) M/mm3 Hgb (12.0-16.0) gm/dl Hct (35-47) % MCV (78-100) fl MCH (26-32) pg MCHC (32-36) g/dl RDW (11.5-14.0) % Plt Count (150-450) K/mm3 MPV (7.5-11.0) fl Gran % (36.0-66.0) % Eos # (Auto) (0-0.5) Absolute Lymphs (auto) (1.0-4.6) Absolute Monos (auto) (0.0-1.3) Lymphocytes % (24.0-44.0) % Monocytes % (0.0-12.0) % Eosinophils % (0.00-5.0) % Basophils % (0.0-0.4) % Absolute Granulocytes (1.4-6.9) Basophils # (0-0.4) Puncture Site RIGHT BRACHIAL pCO2 37 (35-45) mmHg pO2 79 (75-100) mmHg Base Excess -9.7 L (-2.0-2.0) O2 Saturation 93.9 L (94-100) g/dF ABG pH 7.26 L (7.35-7.45) ABG HCO3 16.6 L* (22-28) ABG O2 Sat (Measured) 94.6 L (95-100) % David Test NOT APPLICABLE A-a Gradient 24 a/A Ratio 0.77 Hemoglobin 10.0 Carboxyhemoglobin 0.7 (0.0-6.9) % THgb Methemoglobin 0.0 L (1.4-1.5) % Temperature 37.0 C POC O2 Flow Rate 21 % Sodium 125 L (137-145) mmol/L Potassium 5.3 H 6.5 H* (3.5-5.1) mmol/L Chloride 97 L (98-107) mmol/L Carbon Dioxide > 10 L* (22-30) mmol/L Anion Gap (5-15) MEQ/L BUN 104 H (7-17) mg/dL Creatinine 6.36 H (0.52-1.04) mg/dL Estimated GFR 6.7 ML/MIN Glucose 169 H (74-106) mg/dL Lactic Acid (0.4-2.0) Calcium 8.2 L (8.4-10.2) mg/dL Total Bilirubin (0.2-1.3) mg/dL AST (14-36) U/L ALT (0-35) U/L Alkaline Phosphatase (38-126) U/L Serum Total Protein (6.3-8.2) g/dL Albumin (3.5-5.0) g/dL Urine Color YELLOW (YELLOW) Urine Appearance CLOUDY (CLEAR) Urine pH 5.0 (5-6) Ur Specific [place] 1.014 (1.005-1.025) Urine Protein 30 (Negative) Urine Ketones NEGATIVE (NEGATIVE) Urine Blood NEGATIVE (0-5) Rj/ul Urine Nitrite NEGATIVE (NEGATIVE) Urine Bilirubin NEGATIVE (NEGATIVE) Urine Urobilinogen NEGATIVE (0-1) mg/dL Ur Leukocyte Esterase LARGE (NEGATIVE) Urine WBC (Auto) >100 (0-5) /HPF Urine RBC (Auto) 11-15 (0-2) /HPF U Epithel Cells (Auto) NONE (FEW) /HPF Urine Bacteria (Auto) MODERATE (NEGATIVE) /HPF Urine Mucus (Auto) SLIGHT (NEGATIVE) /HPF Urine Culture Reflexed ORDERED SEPARATELY (NO) Urine Glucose NEGATIVE (NEGATIVE) mg/dL Influenza Type A Ag (NEGATIVE) Influenza Type B Ag (NEGATIVE) 05/15/21 05/15/21 05/15/21 Range/Units 11:10 10:50 10:50 WBC 14.2 H (4.0-10.5) K/mm3 RBC 4.07 L (4.1-5.4) M/mm3 Hgb 11.0 L (12.0-16.0) gm/dl Hct 35.4 (35-47) % MCV 87.0 (78-100) fl MCH 27.0 (26-32) pg MCHC 31.1 L (32-36) g/dl RDW 20.0 H (11.5-14.0) % Plt Count 168 (150-450) K/mm3 MPV 9.2 (7.5-11.0) fl Gran % 88.6 H (36.0-66.0) % Eos # (Auto) 0.06 (0-0.5) Absolute Lymphs (auto) 0.72 L (1.0-4.6) Absolute Monos (auto) 0.82 (0.0-1.3) Lymphocytes % 5.1 L (24.0-44.0) % Monocytes % 5.8 (0.0-12.0) % Eosinophils % 0.4 (0.00-5.0) % Basophils % 0.1 (0.0-0.4) % Absolute Granulocytes 12.62 H (1.4-6.9) Basophils # 0.02 (0-0.4) Puncture Site pCO2 (35-45) mmHg pO2 (75-100) mmHg Base Excess (-2.0-2.0) O2 Saturation (94-100) g/dF ABG pH (7.35-7.45) ABG HCO3 (22-28) ABG O2 Sat (Measured) (95-100) % David Test A-a Gradient a/A Ratio Hemoglobin Carboxyhemoglobin (0.0-6.9) % THgb Methemoglobin (1.4-1.5) % Temperature C POC O2 Flow Rate % Sodium 127 L (137-145) mmol/L Potassium 6.7 H* (3.5-5.1) mmol/L Chloride 94 L (98-107) mmol/L Carbon Dioxide 15 L* (22-30) mmol/L Anion Gap 24.6 H (5-15) MEQ/L BUN 105 H (7-17) mg/dL Creatinine 6.24 H (0.52-1.04) mg/dL Estimated GFR 6.8 ML/MIN Glucose 96 (74-106) mg/dL Lactic Acid (0.4-2.0) Calcium 8.6 (8.4-10.2) mg/dL Total Bilirubin 0.50 (0.2-1.3) mg/dL AST 23 (14-36) U/L ALT 14 (0-35) U/L Alkaline Phosphatase 65 (38-126) U/L Serum Total Protein 6.5 (6.3-8.2) g/dL Albumin 3.8 (3.5-5.0) g/dL Urine Color (YELLOW) Urine Appearance (CLEAR) Urine pH (5-6) Ur Specific [place] (1.005-1.025) Urine Protein (Negative) Urine Ketones (NEGATIVE) Urine Blood (0-5) Rj/ul Urine Nitrite (NEGATIVE) Urine Bilirubin (NEGATIVE) Urine Urobilinogen (0-1) mg/dL Ur Leukocyte Esterase (NEGATIVE) Urine WBC (Auto) (0-5) /HPF Urine RBC (Auto) (0-2) /HPF U Epithel Cells (Auto) (FEW) /HPF Urine Bacteria (Auto) (NEGATIVE) /HPF Urine Mucus (Auto) (NEGATIVE) /HPF Urine Culture Reflexed (NO) Urine Glucose (NEGATIVE) mg/dL Influenza Type A Ag NEGATIVE (NEGATIVE) Influenza Type B Ag NEGATIVE (NEGATIVE) 05/15/21 Range/Units 10:35 WBC (4.0-10.5) K/mm3 RBC (4.1-5.4) M/mm3 Hgb (12.0-16.0) gm/dl Hct (35-47) % MCV (78-100) fl MCH (26-32) pg MCHC (32-36) g/dl RDW (11.5-14.0) % Plt Count (150-450) K/mm3 MPV (7.5-11.0) fl Gran % (36.0-66.0) % Eos # (Auto) (0-0.5) Absolute Lymphs (auto) (1.0-4.6) Absolute Monos (auto) (0.0-1.3) Lymphocytes % (24.0-44.0) % Monocytes % (0.0-12.0) % Eosinophils % (0.00-5.0) % Basophils % (0.0-0.4) % Absolute Granulocytes (1.4-6.9) Basophils # (0-0.4) Puncture Site pCO2 (35-45) mmHg pO2 (75-100) mmHg Base Excess (-2.0-2.0) O2 Saturation (94-100) g/dF ABG pH (7.35-7.45) ABG HCO3 (22-28) ABG O2 Sat (Measured) (95-100) % David Test A-a Gradient a/A Ratio Hemoglobin Carboxyhemoglobin (0.0-6.9) % THgb Methemoglobin (1.4-1.5) % Temperature C POC O2 Flow Rate % Sodium (137-145) mmol/L Potassium (3.5-5.1) mmol/L Chloride (98-107) mmol/L Carbon Dioxide (22-30) mmol/L Anion Gap (5-15) MEQ/L BUN (7-17) mg/dL Creatinine (0.52-1.04) mg/dL Estimated GFR ML/MIN Glucose (74-106) mg/dL Lactic Acid 1.0 (0.4-2.0) Calcium (8.4-10.2) mg/dL Total Bilirubin (0.2-1.3) mg/dL AST (14-36) U/L ALT (0-35) U/L Alkaline Phosphatase (38-126) U/L Serum Total Protein (6.3-8.2) g/dL Albumin (3.5-5.0) g/dL Urine Color (YELLOW) Urine Appearance (CLEAR) Urine pH (5-6) Ur Specific [place] (1.005-1.025) Urine Protein (Negative) Urine Ketones (NEGATIVE) Urine Blood (0-5) Rj/ul Urine Nitrite (NEGATIVE) Urine Bilirubin (NEGATIVE) Urine Urobilinogen (0-1) mg/dL Ur Leukocyte Esterase (NEGATIVE) Urine WBC (Auto) (0-5) /HPF Urine RBC (Auto) (0-2) /HPF U Epithel Cells (Auto) (FEW) /HPF Urine Bacteria (Auto) (NEGATIVE) /HPF Urine Mucus (Auto) (NEGATIVE) /HPF Urine Culture Reflexed (NO) Urine Glucose (NEGATIVE) mg/dL Influenza Type A Ag (NEGATIVE) Influenza Type B Ag (NEGATIVE) - Progress Progress: improved Progress Note: 05/15/21 11:[address] Lou who advises transfer to outside hospital. Patient may require hemodialysis and nephrology consultation. 05/15/21 12:[address] Negron hospitalist at [facility] who accepts transfer. We are awaiting return call for bed assignment. Discussed with : Prasad Will see patient in: other Counseled pt/family regarding: lab results, diagnosis, rad results - Departure Departure Disposition: Transfer Clinical Impression: Acute renal injury, Hyperkalemia, Metabolic acidosis, Altered mental status, Hyponatremia, Leukocytosis, UTI (urinary tract infection) Condition: Stable Critical Care Time: No Referrals: SERJIO CONRAD [Primary Care Provider] -
[2021-05-15 11:09] LABS: ALBUMIN 3.8 g/dL (3.5-5.0); ANION GAP 24.6 MEQ/L (5-15); BILIRUBIN,TOTAL 0.5 mg/dL (0.2-1.3); Calcium 8.6 mg/dL (8.4-10.2); Total Protein 6.5 g/dL (6.3-8.2)
--- NOTE | 2021-05-15 11:11 | XRAY ---
Indication: Altered mental status. Head injury following fall. Multiple contiguous axial images obtained through the head without contrast. Comparison: None Age-appropriate global atrophy and mild periventricular degenerative micro-ischemia bilaterally. No acute intracranial hemorrhage, abnormal extra-axial fluid collection, or mass effect. Fourth ventricle is midline without hydrocephalus. Bony calvarium intact. Visualized paranasal sinuses and mastoid air cells are clear. Impression: Nonacute senile brain.
[2021-05-15 11:15] LABS: Creatinine 1 6.24 mg/dL (0.52-1.04); EST GLOMERULAR FILTRATION RATE 6.8 ML/MIN
[2021-05-15 11:21] LABS: Potassium 6.7 mmol/L (3.5-5.1)
[2021-05-15] MEDS ORDERED: VELTASSA PO STA (11:24)
[2021-05-15] MEDS ORDERED: HUMULIN R SQ STA (11:25)
[2021-05-15] MEDS ORDERED: D50W 50 ml Abboject IV ONE ×4 (11:25→11:37)
[2021-05-15] MEDS ORDERED: Sodium Bicarbonate 50 MEQ/50 ML VIAL ONE (11:28)
[2021-05-15] MEDS ORDERED: VELTASSA PO ONE (11:30)
[2021-05-15] MEDS ORDERED: Sodium Bicarbonate 50 MEQ/50 ML VIAL*** 75 MEQ in Dextrose 5% -0.45 NaCl 1000 ML 1,000 ML IV SCH (11:30)
[2021-05-15] MEDS ORDERED: Dextrose 5% -0.45 NaCl 1000 ML 1,000 ML IV ONE (11:31)
[2021-05-15 11:36] LABS: INFLUENZA A NEGATIVE (NEGATIVE); INFLUENZA B NEGATIVE (NEGATIVE)
[2021-05-15] MEDS ORDERED: HUMULIN R ONE (11:37)
[2021-05-15 11:44] LABS: Appearance CLOUDY (CLEAR); Bacteria MODERATE /HPF (NEGATIVE); Bilirubin NEGATIVE (NEGATIVE); Blood NEGATIVE Ery/ul (0-5); Glucose NEGATIVE (NEGATIVE); Ketones NEGATIVE (NEGATIVE); Leukocyte Esterase LARGE (NEGATIVE); Mucus SLIGHT /HPF (NEGATIVE); Nitrite NEGATIVE (NEGATIVE); Protein,Urine Dip 30 (Negative); Specific Gravity 1.014 (1.005-1.025); Urobilinogen NEGATIVE mg/dL (0-1); WBC >100 /HPF (0-5)
[2021-05-15] MEDS ORDERED: ROCEPHIN 1 Gm-D5w 50 ml Bag** 1 G/50 ML IVPB IV ONE ×2 (11:56→11:59)
[2021-05-15 15:17] LABS: BLOOD UREA NITROGEN 104 mg/dL (7-17); CHLORIDE 97 mmol/L (98-107); Calcium 8.2 mg/dL (8.4-10.2); Creatinine 1 6.36 mg/dL (0.52-1.04); EST GLOMERULAR FILTRATION RATE 6.7 ML/MIN; Glucose 169 mg/dL (74-106); SODIUM 125 mmol/L (137-145)
[2021-05-15 15:19] LABS: Potassium 6.5 mmol/L (3.5-5.1)
[2021-05-15 15:20] LABS: Carbon Dioxide > 10 mmol/L (22-30)
[2021-05-15 15:35] LABS: A-aADO2 24; ABG POTASSIUM 5.3 (3.5-5.1); ARTERIAL BLD GAS O2 SATURATION 94.6 % (95-100); ARTERIAL BLOOD GAS BASE EXCESS -9.7 (-2.0-2.0); ARTERIAL BLOOD GAS FIO2 21 %; ARTERIAL BLOOD GAS PCO2 37 mmHg (35-45); ARTERIAL BLOOD GAS PO2 79 mmHg (75-100); ARTERIAL BLOOD GAS pH 7.26 (7.35-7.45); CARBOXYHEMOGLOBIN 0.7 % THgb (0.0-6.9); HCO3- 16.6 (22-28); HGB O2 SAT 93.9 g/dF (94-100)
[2021-05-15 15:36] LABS: ABG SITE RIGHT BRACHIAL
[2021-05-15 17:20] VITALS: BP 94/52; PULSE 87; O2SAT 98
== END 2021-05-15 17:33 | disposition short-term general hospital (02) ==
LOC: ED 10:27
DX: N17.9 Acute kidney failure, unspecified (principal); E87.5 Hyperkalemia; E87.2 Acidosis; R41.82 Altered mental status, unspecified; E87.1 Hypo-osmolality and hyponatremia; D72.829 Elevated white blood cell count, unspecified; N39.0 Urinary tract infection, site not specified; E11.9 Type 2 diabetes mellitus without complications; N31.9 Neuromuscular dysfunction of bladder, unspecified; Z79.899 Other long term (current) drug therapy
CPT/HCPCS: 36000; 36415; 36600; 70450; 80048; 80053; 81001; 82375; 82803; 83605; 85025; 87040; 87086; 87400; 93005; 93041; 94760; 96360; 96365; 96374; 96376; 99285; J0696; J1815

== ENCOUNTER 2021-08-08 19:29 | Emergency (ER) | payer MEDICARE ==
[2021-08-08 20:14] LABS: Absolute Neutrophil Ct (ANC) 7.93 (1.4-6.9); BASOPHIL % 0.2 % (0.0-0.4); Basophil (Absolute #) 0.02 (0-0.4); Eosinophil % 2.4 % (0.00-5.0); Eosinophil (Absolute #) 0.26 (0-0.5); Hemoglobin 10.5 gm/dl (12.0-16.0); Lymphocyte (Absolute #) 1.54 (1.0-4.6); Lymphocytes % 14.3 % (24.0-44.0); Mean Corpuscular Hemoglobin 29.2 pg (26-32); Mean Corpuscular Hgb Concent. 29.2 g/dl (32-36); Mean Platelet Volume 8.9 fl (7.5-11.0); Monocyte (Absolute #) 0.99 (0.0-1.3); Monocytes % 9.2 % (0.0-12.0); Neutrophil % 73.9 % (36.0-66.0); Platelet Count 201 K/mm3 (150-450); White Blood Count 10.7 K/mm3 (4.0-10.5)
[2021-08-08 20:22] LABS: Appearance CLEAR (CLEAR); Bacteria RARE /HPF (NEGATIVE); Bilirubin NEGATIVE (NEGATIVE); Blood NEGATIVE Ery/ul (0-5); Glucose >=500 mg/dL (NEGATIVE); Hyaline Casts 0-2 /LPF (0-2); Ketones NEGATIVE (NEGATIVE); Leukocyte Esterase MODERATE (NEGATIVE); Nitrite NEGATIVE (NEGATIVE); Protein,Urine Dip 100 (Negative); RBC 0-2 /HPF (0-2); Specific Gravity 1.011 (1.005-1.025); Urobilinogen NEGATIVE mg/dL (0-1)
[2021-08-08 20:24] LABS: INR 2.34 (0.8-3.0); PROTIME 27.6 SECONDS (9.4-12.5)
[2021-08-08 20:28] LABS: ALBUMIN 3.6 g/dL (3.5-5.0); ANION GAP 14.1 MEQ/L (5-15); BILIRUBIN,TOTAL 0.3 mg/dL (0.2-1.3); Calcium 7.7 mg/dL (8.4-10.2); Creatinine 1 1.54 mg/dL (0.52-1.04); EST GLOMERULAR FILTRATION RATE 34.2 ML/MIN; Potassium 4.5 mmol/L (3.5-5.1); Total Protein 6.3 g/dL (6.3-8.2)
--- NOTE | 2021-08-08 21:19 | ERPHSYRPT ---
- History of Present Illness Time Seen by Provider: 08/08/21 19:46 Source: patient Exam Limitations: no limitations Patient Subjective Stated Complaint: pt states "I have had some blood in the stool the past couple days." Triage Nursing Assessment: pt came into the er via ambulance; pt is axo x4; c/o vaginal bleeding; pt states /10 to lower abdomen; pt states 3 blood discharge in pad today and a few in toilet yesterday; pt states BM today with no blood present with wiping; pt has f/c in place time of arrival; cath replaced during assessment; urine is cloudy, yellow, and foul in smell; pt states she has chronic UTIs; pt has bloody discharge present; pt currently NWB due to recent femur fx; active bowel sounds in all quads; vitals wnl; PICC line in place to RUE Physician History: 81 years old female resident of [facility] with multiple medical problems including coronary artery disease, hypertension, hyperlipidemia, diabetes mellitus, hypothyroidism, history of PE on Coumadin, chronic indwelling catheter with baseline UTI presented in the ER with chief complaint of rectal and vaginal bleeding. Patient reports since yesterday she has noted couple of times passing small clots about the size of a coin x2 yesterday per rectally and one time prior to arrival per vaginally. She denies any chest pain palpitations or shortness of breath. Denies any dizziness or lightheadedness. She has history of chronic anemia and gets iron infusion. She is complaining of dull aching lower abdominal pain mild to moderate intensity without any significant aggravating or relieving factors. No diarrhea or constipation reported. Does have history of hemorrhoids. Timing/Duration: yesterday, intermittent, gradual onset Severity: mild Associated Symptoms: abdominal pain, No shortness of breath Allergies/Adverse Reactions: adhesive tape Allergy (Verified 08/08/21 19:47) atorvastatin [From Lipitor] Allergy (Verified 08/08/21 19:47) bacitracin Allergy (Verified 08/08/21 19:47) codeine Allergy (Verified 08/08/21 19:47) metoclopramide [From Reglan] Allergy (Verified 08/08/21 19:47) morphine Allergy (Verified 08/08/21 19:47) NSAIDS (Non-Steroidal Anti-Inflamma Allergy (Verified 08/08/21 19:47) oxycodone [From OxyContin] Allergy (Verified 08/08/21 19:47) Sulfa (Sulfonamide Antibiotics) Allergy (Verified 08/08/21 19:47) sulfamethoxazole [From Bactrim] Allergy (Verified 08/08/21 19:47) trimethoprim [From Bactrim] Allergy (Verified 08/08/21 19:47) Home Medications: Albuterol Sulfate [Albuterol Sulfate Hfa] 2 inh PO Q6H 04/09/21 [History] Allopurinol 300 mg [Zyloprim 300 mg] 600 mg PO DAILY 04/09/21 [History] Ascorbic Acid [Vitamin C] 1,000 mg PO DAILY 04/09/21 [History] Budesonide 0.5 mg/2 ml [Pulmicort 0.5 mg/2 ml Respules] 1 vial PO UD 04/09/21 [History] Buspirone HCl [Buspar] 10 mg PO BID 04/09/21 [History] Cholecalciferol (Vitamin D3) [Vitamin D3] 125 mcg PO DAILY 04/09/21 [History] Cyanocobalamin (Vitamin B-12) [Vitamin B12] 2,500 mcg PO DAILY 04/09/21 [History] Dapagliflozin Propanediol [Farxiga] 10 mg PO QAM 04/09/21 [History] Docusate Sodium 100 mg [Colace 100 MG] 100 mg PO TID 04/09/21 [History] Duloxetine HCl [Cymbalta] 60 mg PO DAILY 04/09/21 [History] Ferrous Gluconate 324 mg PO TID 04/09/21 [History] Fluconazole 150 mg PO WEEKLY 04/09/21 [History] Fluticasone Propionate [Flovent 110 Mcg MDI] 1 spray IN BID 04/09/21 [History] Fosfomycin Tromethamine 3 gm PO WEEKLY 04/09/21 [History] Gabapentin [Neurontin] 600 mg PO BID 04/09/21 [History] Icosapent Ethyl [Vascepa] 2 gm PO BID 04/09/21 [History] Insulin Glargine,Hum.rec.anlog [Ngozi Qureshi U-100] 36 unit SQ QAM 04/09/21 [History] Insulin Lispro [Humalog] 10 unit SQ TIDAC 04/09/21 [History] Isosorbide Mononitrate [Isosorbide Mononitrate ER] 30 mg PO DAILY 04/09/21 [History] Levothyroxine Sodium 100 Mcg [Synthroid 100 Mcg] 100 mcg PO DAILY 04/09/21 [History] Lisinopril 5 mg [Zestril 5 MG] 5 mg PO DAILY 04/09/21 [History] Magnesium Oxide 400 mg [Mag-Ox 400] 400 mg PO TID 04/09/21 [History] Metoprolol Tartrate 25 mg [Lopressor 25MG Tab] 25 mg PO BID 04/09/21 [History] Montelukast Sodium 10 mg [Singulair 10 MG] 10 mg PO DAILY 04/09/21 [History] Potassium Chloride [Klor-Con] 20 meq PO BID 04/09/21 [History] Rosuvastatin Calcium 10 mg PO HS 04/09/21 [History] Semaglutide [Ozempic] 1 mg SQ WEEKLY 04/09/21 [History] Furosemide 40 mg [Lasix 40 MG] 40 mg PO DAILY 05/15/21 [History] Hx Tetanus, Diphtheria Vaccination/Date Given: Yes (01/21/21) Hx Influenza Vaccination/Date Given: Yes (08/04) Hx Pneumococcal Vaccination/Date Given: Yes Travel Risk - International Travel Have you traveled outside of the country in past 3 weeks: No - Coronavirus Screening Are you exhibiting any of the following symptoms?: No Close contact with a COVID-19 positive Pt in past 14-21 Days: No - Vaccine Status Have you recieved a Covid-19 vaccination: Yes [employer]: Moderna - Vaccination Dates Date of 2cond Vaccination (if applicable): 10/26/20 Comment: booster 2 weeks ago - Review of Systems Constitutional: No Symptoms Eyes: No Symptoms Ears, Nose, & Throat: No Symptoms Respiratory: No Symptoms Cardiac: No Symptoms Abdominal/Gastrointestinal: Abdominal Pain, Hematochezia Genitourinary Symptoms: Vaginal Bleeding Musculoskeletal: No Symptoms Skin: No Symptoms Neurological: No Symptoms Psychological: No Symptoms Endocrine: No Symptoms Hematologic/Lymphatic: Anemia, Blood Clots Immunological/Allergic: No Symptoms - Past Medical History Pertinent Past Medical History: Yes Neurological History: Peripheral Neuropathy Cardiac History: Arrhythmia, Hypertension Respiratory History: Asthma, COPD Endocrine Medical History: Diabetes Type II Musculoskeletal History: Arthritis, Degenerative Disk Disease, Osteoarthritis GI Medical History: No Pertinent History History: No Pertinent History Psycho-Social History: Anxiety Other Medical History: urosepsis, anemia, gout, neuromuscular dysfunction of bladder - Past Surgical History Past Surgical History: Yes Gastrointestinal: Hernia Repair Musculoskeletal: Orthopedic Surgery Other Surgical History: rt knee - Social History Smoking Status: Never smoker Exposure to second hand smoke: No Drug Use: none Patient Lives Alone: No ([place]) Significant Family History: no pertinent family hx - Nursing Vital Signs Nursing Vital Signs: Initial Vital Signs Temperature 99.3 F 08/08/21 19:48 Pulse Rate 94 H 08/08/21 19:48 Respiratory Rate 18 08/08/21 19:48 Blood Pressure 139/64 08/08/21 19:48 O2 Sat by Pulse Oximetry 99 08/08/21 19:48 Pain Scale Pain Intensity 7 - Physical Exam General Appearance: no apparent distress, alert Eye Exam: eyes nml inspection Ears, Nose, Throat Exam: normal ENT inspection, pharynx normal Neck Exam: normal inspection, supple, full range of motion Respiratory Exam: normal breath sounds, lungs clear Cardiovascular Exam: regular rate/rhythm, normal heart sounds Gastrointestinal/Abdomen Exam: soft, normal bowel sounds, tenderness (Mild diffuse lower abdominal tenderness without guarding or rebound.) Pelvic Exam: vaginal bleeding (Blood-tinged fluid) Back Exam: normal inspection Extremity Exam: normal inspection, normal range of motion Neurologic Exam: alert, oriented x 3, cooperative Skin Exam: normal color SpO2 Interpretation: normal SpO2: 99 O2 Delivery: Room Air Ordered Tests: Active Orders 24 hr Category Date Time Status IV Insertion STAT Care 08/08/21 19:48 Active ABDOMEN AND PELVIS W/0 CONTRAS [CT] Stat Exams 08/08/21 19:49 Taken CBC W DIFF Stat Lab 08/08/21 20:05 Completed CMP Stat Lab 08/08/21 20:05 Completed CULTURE,URINE Stat Lab 08/08/21 19:53 Received Lactic Acid Stat Lab 08/08/21 20:21 Completed PROTIME WITH INR Stat Lab 08/08/21 20:05 Completed UA W/RFX UR CULTURE Stat Lab 08/08/21 19:53 Completed Lab/Rad Data: Laboratory Result Diagrams 08/08/21 20:05 08/08/21 20:05 Laboratory Results 08/08/21 08/08/21 08/08/21 Range/Units 20:21 20:05 20:05 WBC (4.0-10.5) K/mm3 RBC (4.1-5.4) M/mm3 Hgb (12.0-16.0) gm/dl Hct (35-47) % MCV (78-100) fl MCH (26-32) pg MCHC (32-36) g/dl RDW (11.5-14.0) % Plt Count (150-450) K/mm3 MPV (7.5-11.0) fl Gran % (36.0-66.0) % Eos # (Auto) (0-0.5) Absolute Lymphs (auto) (1.0-4.6) Absolute Monos (auto) (0.0-1.3) Lymphocytes % (24.0-44.0) % Monocytes % (0.0-12.0) % Eosinophils % (0.00-5.0) % Basophils % (0.0-0.4) % Absolute Granulocytes (1.4-6.9) Basophils # (0-0.4) PT 27.6 H (9.4-12.5) SECONDS INR 2.34 D (0.8-3.0) Sodium 138 (137-145) mmol/L Potassium 4.5 (3.5-5.1) mmol/L Chloride 105 (98-107) mmol/L Carbon Dioxide 23 (22-30) mmol/L Anion Gap 14.1 (5-15) MEQ/L BUN 33 H (7-17) mg/dL Creatinine 1.54 H (0.52-1.04) mg/dL Estimated GFR 34.2 ML/MIN Glucose 177 H (74-106) mg/dL Lactic Acid 1.5 (0.4-2.0) Calcium 7.7 L (8.4-10.2) mg/dL Total Bilirubin 0.30 (0.2-1.3) mg/dL AST 31 (14-36) U/L ALT 27 (0-35) U/L Alkaline Phosphatase 85 (38-126) U/L Serum Total Protein 6.3 (6.3-8.2) g/dL Albumin 3.6 (3.5-5.0) g/dL Urine Color (YELLOW) Urine Appearance (CLEAR) Urine pH (5-6) Ur Specific Anthony (1.005-1.025) Urine Protein (Negative) Urine Ketones (NEGATIVE) Urine Blood (0-5) Rj/ul Urine Nitrite (NEGATIVE) Urine Bilirubin (NEGATIVE) Urine Urobilinogen (0-1) mg/dL Ur Leukocyte Esterase (NEGATIVE) Urine WBC (Auto) (0-5) /HPF Urine RBC (Auto) (0-2) /HPF U Hyaline Cast (Auto) (0-2) /LPF U Epithel Cells (Auto) (FEW) /HPF Urine Bacteria (Auto) (NEGATIVE) /HPF Urine Culture Reflexed (NO) Urine Glucose (NEGATIVE) mg/dL 08/08/21 08/08/21 Range/Units 20:05 19:53 WBC 10.7 H (4.0-10.5) K/mm3 RBC 3.60 L (4.1-5.4) M/mm3 Hgb 10.5 L (12.0-16.0) gm/dl Hct 36.0 (35-47) % MCV 100.0 (78-100) fl MCH 29.2 (26-32) pg MCHC 29.2 L (32-36) g/dl RDW 20.0 H (11.5-14.0) % Plt Count 201 (150-450) K/mm3 MPV 8.9 (7.5-11.0) fl Gran % 73.9 H (36.0-66.0) % Eos # (Auto) 0.26 (0-0.5) Absolute Lymphs (auto) 1.54 (1.0-4.6) Absolute Monos (auto) 0.99 (0.0-1.3) Lymphocytes % 14.3 L (24.0-44.0) % Monocytes % 9.2 (0.0-12.0) % Eosinophils % 2.4 (0.00-5.0) % Basophils % 0.2 (0.0-0.4) % Absolute Granulocytes 7.93 H (1.4-6.9) Basophils # 0.02 (0-0.4) PT (9.4-12.5) SECONDS INR (0.8-3.0) Sodium (137-145) mmol/L Potassium (3.5-5.1) mmol/L Chloride (98-107) mmol/L Carbon Dioxide (22-30) mmol/L Anion Gap (5-15) MEQ/L BUN (7-17) mg/dL Creatinine (0.52-1.04) mg/dL Estimated GFR ML/MIN Glucose (74-106) mg/dL Lactic Acid (0.4-2.0) Calcium (8.4-10.2) mg/dL Total Bilirubin (0.2-1.3) mg/dL AST (14-36) U/L ALT (0-35) U/L Alkaline Phosphatase (38-126) U/L Serum Total Protein (6.3-8.2) g/dL Albumin (3.5-5.0) g/dL Urine Color STRAW (YELLOW) Urine Appearance CLEAR (CLEAR) Urine pH 6.0 (5-6) Ur Specific Anthony 1.011 (1.005-1.025) Urine Protein 100 (Negative) Urine Ketones NEGATIVE (NEGATIVE) Urine Blood NEGATIVE (0-5) Rj/ul Urine Nitrite NEGATIVE (NEGATIVE) Urine Bilirubin NEGATIVE (NEGATIVE) Urine Urobilinogen NEGATIVE (0-1) mg/dL Ur Leukocyte Esterase MODERATE (NEGATIVE) Urine WBC (Auto) 16-25 (0-5) /HPF Urine RBC (Auto) 0-2 (0-2) /HPF U Hyaline Cast (Auto) 0-2 (0-2) /LPF U Epithel Cells (Auto) NONE (FEW) /HPF Urine Bacteria (Auto) RARE (NEGATIVE) /HPF Urine Culture Reflexed YES (NO) Urine Glucose >=500 (NEGATIVE) mg/dL - Progress Progress: improved Progress Note: 08/08/21 22:48 81 years old is evaluated for rectal and vaginal bleeding with some clots. I did not appreciate any vaginal clots but does have some blood-tinged fluid. No bleeding while in the ER. She has stable H&H. Stable vitals. Obtained abdominal CT which did not show any acute findings suggesting colitis. Does have chronic UTI and would not start her on new antibiotic as she probably have UTI all the time, catheter is replaced. Starting a new antibiotic will probably increase INR with increased risk of bleeding. I have discussed with Dr. Lou who knows patient very well, reviewed history work-up and do not think patient needs to be admitted and can be managed outpatient and I agree with him. Patient is advised to follow-up with her primary care for reevaluation. Discussed signs symptoms of worsening needing return to ER which she seems understanding. Discussed with Dr.: Prasad Counseled pt/family regarding: lab results, diagnosis, need for follow-up, rad results - Departure Departure Disposition: Home Clinical Impression: Lower GI bleed, Vaginal bleeding Condition: Stable Critical Care Time: No Referrals: SERJIO CONRAD [Primary Care Provider] - Follow up/PCP as directed (Call your PCP Dr. Law for reevaluation) Instructions: Bloody Stools, Adult (DC) Additional Instructions: Follow-up with your primary care for reevaluation tomorrow. Continue with Coumadin and discuss with your primary care whether it needs to be stopped or continued based on risk and benefits of anticoagulation. Return to ER if again have vaginal or rectal bleeding, feeling dizzy lightheaded, chest pain or shortness of breath etc.
[2021-08-08 22:58] VITALS: PULSE 90
[2021-08-09] VITALS: BP 140/73; O2SAT 97
--- NOTE | 2021-08-09 08:35 | XRAY ---
Indication: Abdomen pain and vaginal bleeding. Colitis. Multiple contiguous axial images obtained through the abdomen and pelvis without contrast. Comparison: April 12, 2021. Lung bases again demonstrates scattered subsegmental atelectasis/scarring. Heart is now enlarged. No effusion. Stomach is distended with food/fluid. Noncontrasted stomach and bowel loops nonobstructed. There is again moderate diffuse scattered colonic fecal debris throughout. No free fluid/air. Gallbladder presumed contracted without obvious gallstones. New IVC filter. Stable bilateral renal cysts, Chávez balloon catheter, and left lower back epidural stimulator device. Remaining liver, pancreas, spleen, adrenal glands, kidneys, ureters, and bladder are unremarkable for noncontrast exam. Stable extensive scattered vascular calcifications. No AAA. Osseous structures intact again with osteopenia, levorotoscoliosis, multilevel remote thoracolumbar compression fractures, L3 kyphoplasty, moderate/advanced multilevel degenerative spondylosis, grade 1 L4 spondylolysis thesis, old distal sacral fracture, and right total hip arthroplasty. Impression: 1. New IVC filter and new cardiomegaly. 2. Stable diffuse fecal stasis, bilateral renal cysts, Chávez catheter, heavy arteriosclerotic disease, and chronic bony findings. 3. Remaining CT abdomen/pelvis without contrast exam is negative. Comment: Preliminary interpretation by [facility]. No critical discrepancy.
== END 2021-08-08 23:55 | disposition home or self-care (01) ==
LOC: ED 19:29
DX: K62.5 Hemorrhage of anus and rectum (principal); N93.9 Abnormal uterine and vaginal bleeding, unspecified; R10.30 Lower abdominal pain, unspecified; Z86.711 Personal history of pulmonary embolism; Z79.01 Long term (current) use of anticoagulants; E11.40 Type 2 diabetes mellitus with diabetic neuropathy, unspecified; Z79.4 Long term (current) use of insulin; Z79.899 Other long term (current) drug therapy; Z79.84 Long term (current) use of oral hypoglycemic drugs; I10 Essential (primary) hypertension; E78.5 Hyperlipidemia, unspecified; T83.511A Infection and inflammatory reaction due to indwelling urethral catheter, initial encounter; N39.0 Urinary tract infection, site not specified
CPT/HCPCS: 36000; 36415; 74176; 80053; 81001; 83605; 85025; 85610; 87077; 87086; 87186; 99284

== ENCOUNTER 2021-12-26 09:37 | Day surgery (SDC) | payer MEDICARE ==
--- NOTE | 2021-12-20 09:54 | HP ---
DATE OF SURGERY: 12/26/2021 HISTORY OF PRESENT ILLNESS: The patient presents for complaints of hemorrhoids. The patient had some questionable drainage from the vagina and the bladder. The patient had pretty significant surgical history including hysterectomy, massive hernia repair, enterolysis, cholecystectomy. She had a bowel surgery. The patient has not had recent evaluation of the colon area to determine if she had any kind of fistulization. She presents for such. PAST MEDICAL HISTORY: Obesity, diabetes, diverticular disease, gout, chronic ventral hernia, hyperlipidemia, hypertension, history of pulmonary embolism, renal insufficiency, thyroid disease. PAST SURGICAL HISTORY: Hysterectomy, massive hernia repair, enterolysis, cholecystectomy, bowel surgery. ALLERGIES: CODEINE. METOCLOPROMIDE. MORPHINE. NSAIDS. OXYCODONE. SULFA. BACTRIM. ATORVASTATIN. BACITRACIN. ADHESIVE TAPE. MEDICATIONS: Synthroid, insulin, Cymbalta, MiraLAX, lovastatin, Allopurinol, Lasix, potassium, gabapentin, Plavix, Carafate, Nitro, Eliquis, Breo Ellipta, Flonase, Zetia, tramadol, Jardiance, isosorbide mononitrate, Vascepa, Zyrtec, Nystatin, ferrous sulfate, Ventolin, Prilosec, Basaglar. FAMILY HISTORY: Negative. SOCIAL HISTORY: Negative. REVIEW OF SYSTEMS: CONSTITUTIONAL: Denies fever or chills. CHEST: Denies shortness of breath. CVS: Denies chest pain. ABDOMEN: Denies abdominal pain. PHYSICAL EXAMINATION: GENERAL: No acute distress. CHEST: Nonlabored. CVS: Regular rate and rhythm. ABDOMEN: Soft, obese. IMPRESSION: Colovesical or colovaginal fistula. PLAN: Limited colonoscopy and vaginoscopy with Dr. Terry Sales. As dictated by Madalyn Monahan NP.
[~2021-12-26 09:37] MED LIST: Lactated Ringers 1,000 ML IV SCH
[2021-12-26] MEDS ORDERED: Lactated Ringers 1,000 ML IV ONE (10:24)
[2021-12-26] MEDS ORDERED: DIPRIVAN 200 MG/20 ML IV ONE (13:06)
[2021-12-26 15:03] VITALS: BP 155/79; PULSE 85; O2SAT 95
--- NOTE | 2021-12-27 10:03 | OP ---
SURGERY DATE: 12/26/2021 SURGERY TIME: 1305 PREOPERATIVE DIAGNOSIS: 1. SOUNDS LIKE SHE MIGHT HAVE A COLOVAGINAL FISTULA. POSTOPERATIVE DIAGNOSIS: 1. SOUNDS LIKE SHE MIGHT HAVE A COLOVAGINAL FISTULA. PROCEDURE: 1. Limited colonoscopy. 2. Vaginoscopy. SURGEON: Terry Sales M.D. ANESTHESIA: MAC. COMPLICATIONS: None. CONDITION: Stable. OPERATIVE PROCEDURE: She was taken to the OR. Left lateral decubitus position. MAC sedation provided. Bowel prep had been given. The scope was placed in the vagina and on the upper right corner there was major granulation tissue, a little bit of oozing. There was no mark stool, but I think she certainly clinically has a fistula here. Scope was then placed in the rectum. It was only advanced 15-16 cm and it was greeted by stool. The rectum itself was normal, but above the rectum was really not seen. 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 We have ordered a barium enema as an outpatient. She does have a Chávez catheter and she is quite elderly and quite limited and I am not sure that we are going to be able to do anything significant about this.
[2021-12-31] MEDS ORDERED: Lactated Ringers 1,000 ML IV SCH (12:00)
== END 2021-12-26 14:15 | disposition home or self-care (01) ==
LOC: SDC 09:37
PROVIDERS: ATTEND Surgery
DX: N82.3 Fistula of vagina to large intestine (principal); E11.9 Type 2 diabetes mellitus without complications; Z79.899 Other long term (current) drug therapy; Z79.01 Long term (current) use of anticoagulants
CPT/HCPCS: 36415; 45378; 57452; 82947; 85610; P9604; 99100; J2704

== ENCOUNTER 2022-05-10 11:22 | Emergency (ER) | payer MEDICARE ==
[2022-05-10 11:51] VITALS: BP 114/66; PULSE 103; O2SAT 97
--- NOTE | 2022-05-10 11:56 | ERPHSYRPT ---
- History of Present Illness Time Seen by Provider: 05/10/22 11:33 Source: patient, EMS Exam Limitations: no limitations Patient Subjective Stated Complaint: Pt got a PICC line placed in her left arm yesterday and it continues to bleed and she is on blood thinners Triage Nursing Assessment: Pt brought to the ER by EMS, vitals wnl, denies pain, site of PICC line saturated in blood, pulses normal, skin n/w/d, doesn't appear to be in any distress Physician History: 81 years old female with history of pulmonary embolism on Eliquis, chronic/recurrent UTI with indwelling catheter [facility] is brought in the ER after she had PICC line placed left arm yesterday and since then having off-and-on oozing from insertion site without any swelling or hematoma collection. As per report PICC line is flushing fine. She denies any pain. Denies any chest pain palpitations or shortness of breath. Not in any distress. Timing/Duration: yesterday, intermittent Severity: mild Associated Symptoms: denies symptoms Allergies/Adverse Reactions: adhesive tape Allergy (Verified 05/10/22 11:51) atorvastatin [From Lipitor] Allergy (Verified 05/10/22 11:51) bacitracin Allergy (Verified 05/10/22 11:51) codeine Allergy (Verified 05/10/22 11:51) metoclopramide [From Reglan] Allergy (Verified 05/10/22 11:51) morphine Allergy (Verified 05/10/22 11:51) NSAIDS (Non-Steroidal Anti-Inflamma Allergy (Verified 05/10/22 11:51) oxycodone [From OxyContin] Allergy (Verified 05/10/22 11:51) Sulfa (Sulfonamide Antibiotics) Allergy (Verified 05/10/22 11:51) sulfamethoxazole [From Bactrim] Allergy (Verified 05/10/22 11:51) trimethoprim [From Bactrim] Allergy (Verified 05/10/22 11:51) Home Medications: Albuterol Sulfate [Albuterol Sulfate Hfa] 2 inh PO Q6H 04/09/21 [History] Allopurinol 300 mg [Zyloprim 300 mg] 600 mg PO DAILY 04/09/21 [History] Ascorbic Acid [Vitamin C] 1,000 mg PO DAILY 04/09/21 [History] Buspirone HCl [Buspar] 10 mg PO BID 04/09/21 [History] Cholecalciferol (Vitamin D3) [Vitamin D3] 125 mcg PO DAILY 04/09/21 [History] Cyanocobalamin (Vitamin B-12) [Vitamin B12] 2,500 mcg PO DAILY 04/09/21 [History] Dapagliflozin Propanediol [Farxiga] 10 mg PO QAM 04/09/21 [History] Docusate Sodium 100 mg [Docusate Sodium 100 MG] 100 mg PO TID 04/09/21 [History] Duloxetine HCl [Cymbalta] 60 mg PO DAILY 04/09/21 [History] Fluconazole 150 mg PO WEEKLY 04/09/21 [History] Gabapentin [Neurontin] 300 mg PO BID 04/09/21 [History] Icosapent Ethyl [Vascepa] 2 gm PO BID 04/09/21 [History] Insulin Lispro [Humalog] 10 unit SQ TIDAC 04/09/21 [History] Levothyroxine Sodium 100 Mcg [Synthroid 100 Mcg] 100 mcg PO DAILY 04/09/21 [History] Magnesium Oxide 400 mg [Mag-Ox 400] 400 mg PO TID 04/09/21 [History] Metoprolol Tartrate 25 mg [Lopressor 25MG Tab] 25 mg PO BID 04/09/21 [History] Rosuvastatin Calcium 10 mg PO HS 04/09/21 [History] Acetaminophen 325 mg [Tylenol 325 mg] 650 mg PO Q6HPRN PRN 12/18/21 [History] Furosemide 20 mg [Lasix 20 mg] 20 mg PO UD 12/18/21 [History] Hydrocodone/Acetaminophen [Hydrocodone-Acetamin 5-325 mg] 1 each PO BIDPRN PRN 12/18/21 [History] Hydrocodone/Acetaminophen [Hydrocodone-Acetamin 5-325 mg] 1 tab PO Q6HPRN PRN MDD 4 12/18/21 [History] Magnesium Hydroxide [Milk of Magnesia] 2,400 mg PO HS 12/18/21 [History] Nitroglycerin 0.4 mg Tablet [Nitrostat 0.4 MG Tablet] 0.4 mg SL UD 12/18/21 [History] Nystatin Cream 30 gm [Nystop 30 gm Cream] 30 gm TP TID 12/18/21 [History] Omeprazole 20 mg PO DAILY 12/18/21 [History] Ondansetron ODT 4 MG [Zofran Odt 4 mg] 4 mg PO HS 12/18/21 [History] Phenazopyridine HCl [Azo Urinary Pain Relief] 95 mg PO UD 12/18/21 [History] Polyethylene Glycol 3350 17 gm [Miralax Powder 17GM PACKET] 17 gm PO DAILY PRN PRN 12/18/21 [History] Tetrahydrozoline HCl [Eye Drops] 15 ml OP QID 12/18/21 [History] Insulin Detemir [Levemir] 5 unit SQ DAILY 12/26/21 [History] Hx Tetanus, Diphtheria Vaccination/Date Given: Yes (01/21/21) Hx Influenza Vaccination/Date Given: Yes (08/04) Hx Pneumococcal Vaccination/Date Given: Yes Travel Risk - International Travel Have you traveled outside of the country in past 3 weeks: No - Coronavirus Screening Are you exhibiting any of the following symptoms?: No Close contact with a COVID-19 positive Pt in past 14-21 Days: No - Vaccine Status Have you recieved a Covid-19 vaccination: Yes Store Facility Technician: Moderna - Vaccination Dates Date of 2cond Vaccination (if applicable): 10/26/20 Comment: booster 2 weeks ago - Review of Systems Constitutional: No Symptoms Eyes: No Symptoms Ears, Nose, & Throat: No Symptoms Respiratory: No Symptoms Cardiac: No Symptoms Abdominal/Gastrointestinal: No Symptoms Genitourinary Symptoms: Dysuria Musculoskeletal: No Symptoms Psychological: No Symptoms Hematologic/Lymphatic: No Symptoms - Past Medical History Pertinent Past Medical History: Yes Neurological History: Peripheral Neuropathy ENT History: No Pertinent History Cardiac History: Arrhythmia, Hypertension Respiratory History: Asthma, CHF, COPD Endocrine Medical History: Diabetes Type II Musculoskeletal History: Arthritis, Degenerative Disk Disease, Osteoarthritis GI Medical History: No Pertinent History History: No Pertinent History Psycho-Social History: Anxiety Female Reproductive Disorders: No Pertinent History Other Medical History: urosepsis, anemia, gout, neuromuscular dysfunction of bladder - Past Surgical History Past Surgical History: Yes Neuro Surgical History: No Pertinent History Cardiac: Cardiac Catheterization, Cardiac Stent Respiratory: No Pertinent History Gastrointestinal: Hernia Repair Genitourinary: No Pertinent History Musculoskeletal: Orthopedic Surgery Female Surgical History: Hysterectomy Other Surgical History: rt knee, pt hys followed by oophrectomy - Social History Smoking Status: Never smoker Exposure to second hand smoke: No Drug Use: none Patient Lives Alone: No Significant Family History: no pertinent family hx - Nursing Vital Signs Nursing Vital Signs: Initial Vital Signs Temperature 97.6 F 05/10/22 11:25 Pulse Rate 103 H 05/10/22 11:25 Blood Pressure 114/66 05/10/22 11:25 O2 Sat by Pulse Oximetry 97 05/10/22 11:25 Pain Scale Pain Intensity 0 - Physical Exam General Appearance: no apparent distress, alert Eye Exam: PERRL/EOMI Neck Exam: normal inspection, full range of motion Respiratory Exam: normal breath sounds, lungs clear Cardiovascular Exam: regular rate/rhythm, normal heart sounds Gastrointestinal/Abdomen Exam: soft, normal bowel sounds, No tenderness Extremity Exam: normal inspection, other (Minimal oozing from left arm/elbow area around insertions site for PICC line. No bleeding observed if we keep the arm straight.) Neurologic Exam: alert, oriented x 3, cooperative Skin Exam: normal color SpO2 Interpretation: normal SpO2: 97 O2 Delivery: Room Air - Progress Progress: improved Progress Note: 05/10/22 11:54 81 years old is evaluated for bleeding from PICC line insertion area. I have observed it is more of a positional and if we keep upper extremity straight there is no bleeding. She is on Eliquis which I would not stop and continue as bleeding is not severe/life-threatening. I have put in a soft board behind the elbow and will keep it straight and I hope it will improve. She is advised to f ollow-up with PICC line insertion team. Discussed signs symptoms of worsening needing return to ER which she seems understanding. Stable for discharge. Counseled pt/family regarding: diagnosis, need for follow-up - Departure Departure Disposition: Home Clinical Impression: Bleeding from PICC line Condition: Stable Critical Care Time: No Referrals: ENVIVE,ENVIVE [Primary Care Provider] - Follow up/PCP as directed Instructions: Peripherally-Inserted Central Catheter (DC) Additional Instructions: Follow-up with your primary care and primary PICC team for reevaluation/replace ment. Return to ER for worsening bleeding, pain etc.
== END 2022-05-10 12:02 | disposition home or self-care (01) ==
LOC: ED 11:22
DX: T82.838A Hemorrhage due to vascular prosthetic devices, implants and grafts, initial encounter (principal); I10 Essential (primary) hypertension; J44.9 Chronic obstructive pulmonary disease, unspecified; E11.42 Type 2 diabetes mellitus with diabetic polyneuropathy; Z79.4 Long term (current) use of insulin; Z79.01 Long term (current) use of anticoagulants; Z79.891 Long term (current) use of opiate analgesic; Z79.899 Other long term (current) drug therapy
CPT/HCPCS: 99281